=== PATIENT | female | born 1960 | race Caucasian/White ===

== ENCOUNTER 2024-06-29 12:06 | Emergency (ER) | payer OTHER, SELFPAY ==
--- OUTSIDE RECORDS SUMMARY | 2024-01-20 11:55 | XMS_ITS ---
Author Organization [facility] Address [address] [place] [address] Care Team Providers Care Imager Name Role Phone Shae Gonzales Primary Care Provider Caitlin Barnett [phone] REASON FOR VISIT [facility] Encounters Encounter Location Date Provider Diagnosis [address] [id number] 01/20/2024 Caitlin Siddiqui Plan Of Treatment No Information Progress Notes * HIEN CUMMINGSOB:1960 (63 yo F)Acc No.[id number]:01/20/2024 Patient: JESSI HOOD Provider: Balwinder Siddiqui MD :1960 A ge:63 Y S ex:Female Date:01/20/2024 Address:[address] [id number] Pcp:Shae Gonzales Subjective: * Chief Complaints: * 1 . [facility]. * Medical History: Objective: * Vitals: Assessment: Plan: * Treatment: * Images: Billing Information: * Visit Code: * Procedure Codes: * Electronic signature of Fariha Siddiqui MD on 06/29/2024 at 12:09 PM CDT Sign off status: Pending * Provider: Balwinder Siddiqui MD Date: 1 03/22/2023 Generated for Printi ng/Faxing/eTransmitting on: 0 06/29/2024 12:09 PM CDT
[2024-06-29] VITALS (21 sets, daily range): BP systolic 97–135; BP diastolic 59–84; PULSE 84–94; RESP 11–97; TEMP 37.2; O2SAT 93–100; BMI 27.1
--- OUTSIDE RECORDS SUMMARY | 2024-06-29 12:08 | XMS_ITS ---
Author Name Interface, [id number] Address [address] [facility] [address] [address] Organization [facility] Address [address] [facility] [address] [address] Care Team Providers Care Prep Person Name Role Phone LoboRachael Unavailable Unavailable Allergies and Adverse Reactions Medication/Group Name Reaction Severity Date Restasis 01/26/2024 Vesicare 01/26/2024 hydroxychloroquine Penicillins 01/26/2024 amoxicillin 01/26/2024 cephalexin 01/26/2024 methotrexate 01/26/2024 minocycline 01/26/2024 Plan Date Type Value 01/26/2024 APPOINTMENT OV 20 MIN 06/17/2023 APPOINTMENT OV 30 MIN 06/17/2023 EDNA Mammogram, 3D wi th tomosynthesis Reason for Visit OV 20 MIN Encounters Date Name 06/17/2023 Breast cancer, femal e 06/17/2023 Breast pain 06/17/2023 Estrogen receptor po sitive status [ER+] 06/17/2023 History of malignant neoplasm of breast (situation) 06/17/2023 Hot flashes 06/17/2023 Lymphedema 06/17/2023 Screening mammograph y (procedure) 06/17/2023 Vaginal dryness (dis order) Immunizations Date Name Route Dose Instructions Refusal Reason Stat us Flu vaccine - Adult Comp leted Medications Date Name Route Dose Frequency Instructions Start Date End Date Status Cholecalciferol Oral active Ibuprofen Oral ac tive Gabapentin Oral po 2.0 daily a ctive Triamcinolone Topical Cream 0.1 % active Fluconazole Oral Tablet active Betamethasone Dipropionate Topical Cream 0.05 % active Multivitamins Oral Tablet active Tacrolimus Topical Ointment 0.1 % activ e 024 diclofenac sodium 0.01 MG/MG Topical Gel 06/17/19 24 active 024 anastrozole 1 MG Oral Tablet orally 1.0 tablet every day 05/08/19 24 active 023 diclofenac sodium 0.01 MG/MG Topical Gel 02/26/19 23 active 023 anastrozole 1 MG Oral Tablet orally 1.0 tablet every day 02/26/19 23 active 022 anastrozole 1 MG Oral Tablet orally 1.0 tablet every day 07/04/19 22 active Problems Diagnosis Status Date of Diagnosi s Screening mammography (procedure) Active History of malignant neoplasm of breast (situati on) Active Breast cancer, female Active 12/29/2020 Hot flashes Active Estrogen receptor positive status [ER+] Active Breast pain Active Vaginal dryness (disorder) Active Lymphedema Active Vital Signs Date Type Value 06/17/2023 BMI 28.10 06/17/2023 Height 72.00 06/17/2023 Weight 207.20 06/17/2023 Pain Scale 5.00 06/17/2023 BSA 2.16 06/17/2023 Oxygen Saturation 96.00 06/17/2023 Respiratory Rate 16.00 06/17/2023 Heart Beat 86.00 06/17/2023 Body Temperature 99.00 06/17/2023 Intravascular Systolic 146 06/17/2023 Intravascular Diastolic 90 01/26/2024 BSA 2.14 01/26/2024 BMI 27.40 01/26/2024 Height 72.00 01/26/2024 Weight 202.00 01/26/2024 Pain Scale 4.00 01/26/2024 Intravascular Systolic 122 01/26/2024 Intravascular Diastolic 72 01/26/2024 Oxygen Saturation 99.00 01/26/2024 Respiratory Rate 16.00 01/26/2024 Body Temperature 97.40 01/26/2024 Heart Beat 87.00 Notes Section * Med Onc Follow-up Note Patient Name: JESSI CUMMINGS Date Of : 1960 Today's Provider:?Rachael Diamond RN, MORTGAGE ORIGINATOR, MA, AOCN Date of Service:?06/17/2023 Attending Physician:?Isadora Richards (Hematology/Oncology) Referring Provider: ? HEMATOLOGY/ MEDICAL ONCOLOGY FOLLOW UP VISIT Reason for Visit Ongoing clinical surveillance?? Identifying data: Patient is a 61-year-old female with a history of stage I??left breast cancer, currently on anastrozole Assessment 1.?? Stage I??left-sided breast cancer, ???ER/MI strongly positive, grade 1,??pT1c, N0 M0, H ER 2 negative ???Postmenopausal ?Previously seen at [facility], transferring care for insurance reasons ???Oncotype score 0 ??? Treatment:??(02/27/2021)??left breast lumpectomy followed by radiation therapy ?(05/2021???present) Anastrozole 1 mg p.o. daily, tolerating well 2.?? Hot flashes???stable ??? Is not interested in venlafaxine ??? Per previous note,??patient stopped??black nikos due to controversial data with ER positive breast cancer 3.?? Sjogren's disease ??? Patient??has dry mouth??using artificial saliva 5.?Bone density ???Normal bone density at start of endocrine therapy ???(06/09/2023) DEXA: Normal bone density, improved from previous??DEXA 6.?? Depression ???Managed with??escitalopram 7. ??Vaginal dryness ??? Previously given samples of HyloGyn 8.?? Left breast lymphedema ?Previous imaging has been done and negative, continues to have tightness. Plan 1.?Continue anastrozole??daily 2.?? Follow-up with Dr. Richards in 6 months 3.?? Annual mammogram in January, prior to follow-up with Dr. Richards 4.?? Patient is not interested in restarting physical therapy for lymphedema and??left breast pain associated with scar tissue??however I recommended??massage and a compression bra??(patient tried a compression bra but??it applied too much pressure and axilla causing more pain) 5. ??She may try Voltaren for breast pain. 6. ??Hylo SHIRRING MACHINE OPERATOR??suppositories with hyaluronic acid for vaginal dryness;??samples provided and reviewed??directions Advanced Care Planning Not discussed at this visit. Pain Scale on Today's Visit 5 Pain Plan on Today's Visit Date of Service: 06/17/2023 Pain Scale (0-10): 5 Pain Treatment Plan: Reassessment of pain at an appropriate time interval Comment: Chronic breast pain, stopped PT and has not been using Voltaren Smoking Status Smoking Tobacco : Never smoker; Smokeless Tobacco : none found; Vaping : none found Depression Screening Tool Status Was not screened Reason: Patient Refused; Screening Date: 06/17/2023 History of Present Illness 60-year-old postmenopausal female, some family history of breast cancer, brief use of hormone replacement therapy was abnormality was detected on routine mammography 1. ??12/15/2020: Patient had diagnostic mammogram done??which showed left breast 2 o'clock position 10 cm nipple and area of??mammographic abnormality??which is noted on ultrasound to be 1.3 cm 2.?? 12/19/2020:??Left breast ultrasound-guided biopsy??performed of left breast, 2:00 10 cm from nipple ?Invasive ductal cancer ??? Milano grade??1 of 3 ??? Angiolymphatic invasion absent ??? ER +99% ??? MI positive??and 9% ??? HER2??equivocal 2+ ??? Negative on FISH 3.?? 02/27/2021: Lumpectomy performed ??? Invasive ductal cancer ??? Grade 1 of 3 ??? 1.3 cm ?Margins negative, closest for DCIS 0.3 cm ?4 lymph nodes all negative 4.?? 03/14/2021: Oncotype score 0, distant recurrence at 9 years 3% average chemotherapy benefit lessthan 1% 5.?? 05/01/2021 to 05/30/2021: Patient received 4-5 600 followed by boost to tumor bed of 1000 cGy for total dose of 5256 CGY 6.?Early May 2021: Started??anastrozole Reproductive history:??Menarche at age 14, age of first live 27,??number pregnancies 4, number of live births 4,??refuses hormone replacement therapy??she thinks for about 4 years.?? Menopause was??in 2018 HEALTH MAINTENANCE: 1. ??(06/09/2023) DEXA:??Normal bone density 2.?? (01/16/2023) mammogram:??No abnormal findings 3.?? (01/2023)??Pap and pelvic: Normal 4.?? (03/2023) colonoscopy:??Per patient, no abnormal findings, report has been requested Interval History Latia continues to have??edema??to her left breast, lower portion and pain??to the upper outer quadrant extending to the axilla.?? Initially she was [facility] at [facility]??but then moved [facility] as it was more convenient.?? She wrapped her breast and chest wall for a while but then stopped??she did not want to continue.?? She was fitted for a support bra??but did not purchase a bra as it was causing too much??pressure??to the left axilla causing pain.?? She felt the pain and swelling would worsen if she wore it.?No changes to the breast or enlarged lymph nodes. She continues to have intermittent hot flashes, stable. ??She also has generalized body aches whichstarted with anastrozole, stable.?? No cardiac or respiratory complaints. ??Appetite is good and remained stable.?Bowels are regular, no melena or hematochezia. ??She had a colonoscopy in March, believes the results were normal??but unsure of pathology report or when she is due for a follow-up??colonoscopy.?? No??vaginal bleeding or discharge. ??Pap smear in January was normal.?? She has ongoing vaginal dryness??and used Hylo SHIRRING MACHINE OPERATOR for a few doses but unsure if it was helpful. Review of Systems Remaining 14 point comprehensive review of systems within normal limits. NCCN Distress Thermometer and Problem List were collected and documented in the patient chart.?? Remarkable symptoms and concerns were discussed with the patient.?? Any additional follow-up is indicated in the plan. Past Medical and Surgical History Lumbar discectomy, vein stripping surgery.?? Previous diagnosis of this??depression documented in chart, Sjogren's disease, vocal cord nodule Current Medications Medication List Name Date Escitalopram Oral 07/03/2021 Gabapentin Oral 07/03/2021 Tacrolimus Topical Ointment 0.1 % 2021 Ibuprofen Oral 07/03/2021 Multivitamins Oral Tablet 07/03/2021 Anastrozole Oral 05/08/2023 Cholecalciferol Oral 07/03/2021 Fluconazole Oral Tablet 07/03/2021 Triamcinolone Topical Cream 0.1 % 2021 Diclofenac Topical Gel 1 % 06/17/2023 Betamethasone Dipropionate Topical Cream 0.05 % 07/03/2021 Allergies Penicillins, Restasis, Vesicare, amoxicillin, cephalexin, hydroxychloroquine, methotrexate and minocycline Family History Mother with breast cancer in her 50s, paternal grandmother with breast cancer Complete genetic testing negative Social History ,??lives in [place] with her , Jeanmarie. Habits:?does not smoke or drink alcohol No update Vital Signs Blood pressure: 146/90, Pulse: 86, Temperature: 99 F, Respirations: 16, O2 sat: 96%, Pain Scale: 5,Height: 72 in, Weight: 207.2 lb, BSA: 2.16, BMI: 28.1 kg/m2 Covid-19 vaccine (School Yourself) (07/03/2021), Patient declined/rejected; Flu vaccine - Adult (12/31/2021), Elsewhere; Flu vaccine - Adult (07/03/2021), Elsewhere Performance Status ECOG or Karnofsky ECOG: Not recorded Karnofsky: 100% Normal, no complaints, no evidence of disease. (Date: 06/17/2023) Physical Exam GENERAL: Healthy appearing female no acute distress. JAMES: Pupils equal, round, reactive to light. ??Conjunctive are clear. ??Extraocular movement intact. ?? LYMPH: No cervical, supraclavicular or axillary lymphadenopathy CV: Regular rate and rhythm. ??No murmurs or gallops noted. ??No peripheral edema. RESP: Patient does not appear short of breath with conversation. ??Lungs are clear to auscultation BREAST: Right breast exam benign. ??Left breast status post lumpectomy and axillary lymph node dissection. ??Generalized lymphedema to the lower half of the left breast. ??Pain noted with assessment at the tail of the breast into the left axilla, extensive scar tissue noted but?? no mass or skin changes.?? Genetics/Molecular/Biomarkers * Breast cancer, female ( Stage Date: Unknown, Stage IA (T1c, pN0, M0, G1, ER Status: Positive, MI Status: Positive, HER-2/tom Status: Negative) Date of Dx:12/29/2020 ) Additional Labs, Imaging, and Other Studies Lab Results ? Surveys/Consents/Other Discussions The patient verbalized understanding of plan of care. Patient will be seen as above, sooner if needed. ??35 minutes ??? 30 minutes history and physical,??symptom management,??discussing follow-up plan, update healthmaintenance ??? 5 minutes orders and documentation Rachael Diamond RN, MAILE, KATHY, HARRIS CC: FAX Chelsey Rodriguez MD Electronically signed by Rachael Diamond RN, MAILE, KATHY, HARRIS 06/17/2023 15:32 CDT
--- OUTSIDE RECORDS SUMMARY | 2024-06-29 12:08 | XMS_ITS | Data Portability ---
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 Plan of Treatment Reminders Order Date Submit Date Provider Last Modified By Organization Details Last Modified Time Details Appointments URODYNA MICS FU 20 2024 11:30A M Tapan Vaughn MD Not available Not available Not available Lab urinaly sis, dipstic k 2024 025 [email or web address] [facility], [address], [place], [address], 06/09/2024 12:16:10 Referral None recorde d. Procedures urodyna blanka testing , complex (PROC) 2024 025 [email or web address] Not available 06/09/2024 14:19:05 Surgeries None recorde d. Imaging None recorde d. Medication Orders None recorde d. Patient TargetsNo targets recorded. Patient InstructionsNo instructions recorded. Reason for Referral None Reported. Results Created Date Observation Date Name Description Value Unit Range Abnormal Flag Note LastModifiedBy Organization Detail LastModifiedTime 06/10/1906/09/2024 urina lysis , dipst ick BLOOD Trace (5 RBC/uL ) Not Available [facility] [address], [place], [address], 06/09/2024 12:05:59 06/10/1906/09/2024 urina lysis , dipst ick BILIRUBIN Negati ve Not Available [facility] [address], [place], [address], 06/09/2024 12:05:59 06/10/19 25 06/09/2024 urina lysis , dipst ick UROBILINOGEN 0.2 mg/dL (Norm) Not Available [facility] [address], [place], [address], 06/09/2024 12:05:59 06/10/19 25 06/09/2024 urina lysis , dipst ick KETONES Negati ve Not Available [facility] [address], [place], [address], 06/09/2024 12:05:59 06/10/19 25 06/09/2024 urina lysis , dipst ick PROTEIN Negati ve Not Available [facility] [address], [place], [address], 06/09/2024 12:05:59 06/10/19 25 06/09/2024 urina lysis , dipst ick NITRITES Negati ve Not Available [facility] [address], [place], [address], 06/09/2024 12:05:59 06/10/19 25 06/09/2024 urina lysis , dipst ick GLUCOSE Negati ve Not Available [facility] [address], [place], [address], 06/09/2024 12:05:59 06/10/19 25 06/09/2024 urina lysis , dipst ick p.H. 6.5 Not Available [facility] [address], [place], [address], 06/09/2024 12:05:59 06/10/19 25 06/09/2024 urina lysis , dipst ick S.G. (Specific [place]) 1.010 Not Available [facility] [address], [place], [address], 06/09/2024 12:05:59 06/10/19 25 06/09/2024 urina lysis , dipst ick LEUKOCYTES Negati ve Not Available [facility] [address], [place], [address], 06/09/2024 12:05:59 Result Notes None recorded. Problems Name Problem SNOMED Code Status Onset Date Resolution Date Notes Provider Name and Address Organization Details Recorded Time Overactive urinary bladder 300354660 Active 025 Treva todd [facility] 16:18:04 Problem Notes None recorded. Procedures Surgical History Date Name Laterality Status Provider Name and Address Organization Details Recorded Time 025 Urodynamic Studies completed Treva Julio [facility] 06/28/2024 16:16:58 025 CystoscopyFemale completed Tapan Vaughn MD [address] [facility] [address], [place], [address] 06/09/2024 13:12:00 025 Bladder Scan completed Lamont Watkins [facility] 06/09/2024 12:05:54 Imaging Results None recorded. Procedure Notes None recorded. Medical Equipment None Reported. Allergies Allergen ID Allergen Name Allergen Category Reaction Reaction Severity Criticality Documentation Date Start Date Code Code System Note Provider Name and Address Organization Details Recorded Time 914557 Product containin g penicilli n (product) medicatio n Not available Not available Not available 06/09/2024 51249 8001 SNOMED Lamont todd [facility] 12:03:12 Medications Name Sig Start Date Stop Date Status Note LastModified by Organization Details LastModified Time anastrozole 1 mg tablet TAKE 1 TABLET BY MOUTH ONCE DAILY active Not Available Not Available No t Available clonidine HCl 0.1 mg tablet TAKE 1/2 (ONE-HALF ) TABLET BY MOUTH TWICE DAILY 06/09 completed Not Available Not Available Not Available oxybutynin chloride ER 10 mg tablet,exte nded release 24 hr TAKE 1 TABLET BY MOUTH ONCE DAILY 06/09 completed Not Available Not Available Not Available azithromyci n 250 mg tablet TAKE 2 TABLETS BY MOUTH ON DAY 1, AND THEN TAKE 1 TABLET BY MOUTH ONCE A DAY ON DAY 2 THROUGH DAY 5 06/09 completed Not Available Not Available Not Available benzonatate 200 mg capsule TAKE 1 CAPSULE BY MOUTH THREE TIMES DAILY NEEDED FOR COUGH 06/09 completed Not Available Not Available Not Available prednisone 20 mg tablet TAKE 2 TABLETS BY MOUTH ONCE DAILY WITH A MEAL FOR 5 DAYS 06/09 completed Not Available Not Available Not Available gabapentin 400 mg capsule TAKE 4 CAPSULES BY MOUTH ONCE DAILY AT BEDTIME active Not Available Not Available No t Available fluorometho lone 0.1 % eye drops,suspe nsion INSTILL 1 DROP INTO EACH EYE TWICE DAILY 06/09 completed Not Available Not Available Not Available metronidazo le 0.75 % topical cream APPLY CREAM TOPICALLY TWICE DAILY TO FACE 06/09 completed Not Available Not Available Not Available hydroxychlo roquine 200 mg tablet TAKE 1 TABLET BY MOUTH TWICE DAILY WITH MEALS 06/09 completed Not Available Not Available Not Available methylpredn isolone 4 mg tablets in a dose pack TAKE DIRECTED 06/09 completed Not Available Not Available Not Available cefdinir 300 mg capsule TAKE 1 CAPSULE BY MOUTH TWICE DAILY UNTIL GONE 06/09 completed Not Available Not Available Not Available spironolact one 50 mg tablet TAKE 1 TABLET BY MOUTH ONCE DAILY active Not Available Not Available No t Available escitalopra m 10 mg tablet TAKE 1 TABLET BY MOUTH IN THE MORNING active Not Available Not Available No t Available bupropion HCl XL 150 mg 24 hr tablet, extended release TAKE 1 TABLET BY MOUTH ONCE DAILY IN THE MORNING active Not Available Not Available No t Available chlorhexidi ne gluconate 0.12 % mouthwash RINSE WITH 15ML (1 CAPFUL) FOR 30 SECONDS IN THE MORNING AND EVENING AFTER TOOTHBRUS DAGO. EXPECTORA TE AFTER RINSING. DO NOT SWALLOW. 06/09 completed Not Available Not Available Not Available Xiidra 5 % eye drops in a dropperette INSTILL 1 DROP INTO EACH EYE EVERY 12 HOURS 06/09 completed Not Available Not Available Not Available Vitals Date Recorded Body height Body mass index (BMI) Body weight Provider Name and Address Organization Details Last Updated DateTime 06/09/2024 182.88 cm 27.1 kg/m2 19269.47 g Lamont Watkins [facility] 06/09/2024 12:01:59 Social History Question Answer Notes LastModified by [employer] Details LastModified Time Tobacco Smoking Status Never Smoker Lamont Watkins [facility] 06/09/2024 12:05:15 What Is Your Level Of Caffeine Consumption? Occasional Information not available 06/09/2024 What Was The Date Of Your Most Recent Tobacco Screening? 06/09/2024 Information not available 06/09/2024 Have You Ever Been Counseled For Unhealthy Alcohol Use? No Information not available 06/09/2024 Has Tobacco Cessation Counseling Been Provided? No Information not available 06/09/2024 Sex: Female Functional Status Question Answer Note LastModified by [employer] Details LastModified Time Do you use any illicit or recreational drugs? No Information not available 06/09/2024 Do you or have you ever used any other forms of tobacco or nicotine? No Information not available 06/09/2024 What is your level of alcohol consumption? Occasional Information not available 06/09/2024 Mental Status None recorded. Family History Nothing Reported. Medical History Condition Response Other N High Blood Pressure N Kidney Stones N Lung Disease N Depression N GERD/Acid Reflux N Sexually Transmitted Infection N Cancer Y High Cholesterol N Diabetes N Bleeding Disorder N Heart Disease N Gynecological HistoryNo gynecological history recorded. Obstetrics History GPAL:G 0 P 0 0 0 0 Immunizations Vaccine Type Date Status Note Provider Nam e and Address Organization Details Recorded Time Td (adult), 2 Lf tetanus toxoid, preservative free, adsorbed 8 completed Not Available [facility] 06/28/2024 15:13:38 Influenza, split virus, trivalent, preservative 2 completed Not Available [facility] 06/28/2024 15:13:38 Tdap 8 completed Not Available [facility] 06/28/2024 15:13:38 Influenza, split virus, trivalent, preservative 8 completed Not Available [facility] 06/28/2024 15:13:38 Influenza, split virus, trivalent, PF 1 completed Not Available [facility] 06/28/2024 15:13:38 Influenza, split virus, trivalent, preservative 2 completed Not Available [facility] 06/28/2024 15:13:38 Tdap 2 completed Not Available [facility] 06/28/2024 15:13:38 Influenza, split virus, trivalent, preservative 4 completed Not Available [facility] 06/28/2024 15:13:38 Influenza, split virus, quadrivalent, PF 5 completed Not Available [facility] 06/28/2024 15:13:38 Influenza, split virus, quadrivalent, PF 6 completed Not Available [facility] 06/28/2024 15:13:38 Influenza, split virus, quadrivalent, PF 7 completed Not Available [facility] 06/28/2024 15:13:38 Influenza, split virus, quadrivalent, PF 8 completed Not Available [facility] 06/28/2024 15:13:38 Influenza, split virus, quadrivalent, PF 9 completed Not Available [facility] 06/28/2024 15:13:38 Influenza, split virus, quadrivalent, PF 0 completed Not Available [facility] 06/28/2024 15:13:38 zoster recombinant 1 completed Not Available [facility] 06/28/2024 15:13:38 Influenza, recombinant, quadrivalent, PF 1 completed Not Available [facility] 06/28/2024 15:13:38 zoster recombinant 2 completed Not Available [facility] 06/28/2024 15:13:38 Influenza, split virus, quadrivalent, PF 2 completed Not Available [facility] 06/28/2024 15:13:38 Tdap 3 completed Not Available [facility] 06/28/2024 15:13:38 Influenza, split virus, quadrivalent, PF 3 completed Not Available [facility] 06/28/2024 15:13:38 Influenza, split virus, trivalent, PF 4 completed Not Available [facility] 06/28/2024 15:13:38 Past Encounters Encounter ID Performer Location Encounter Start Date Encounter Closed Date Diagnosis/Indication Diagnosis SNOMED-CT Code Diagnosis ICD10 Code Diagnosis Note [id number] MD NARA [facility] [address] [place] [address] 06/09/2024 11:35:05 06/10/2024 12:33:30 Overactive urinary bladder 119085390 N32.81 dysfunctio nal voidingcon tinue CIC bid Will need UDS and fu wit hme after [id number] MD NARA [facility] [address] [place], [place] [address] 06/28/2024 15:09:15 06/29/2024 11:28:05 Overactive urinary bladder 656138484 N32.81 dysfunctio nal voidingcon tinue CIC bid Will need UDS and fu wit hme after Health Concerns Section Related Observation LastModified by Organization Detai ls LastModified Time None Recorded Concern Status LastModified by Organization Details LastModified Time None Recorded Advance Directives Directive None Recorded Payers Insurance Date Sequence Insurance Name Policy Number Policy Wyatt Covered Member ID Wyatt Member ID Guarantor Name 06/25/2024 1 [employer] [id number] Sonja Mobley [id number] Sonja Mobley Notes Date Note Type Note Provider Name and Address Organization Details Recorded Time 06/09/2024 text/html 63 YO F presents with main concern of Nocturia times 2 and urgency both day time night time with urge incontinence. 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 Most recently she has bee treated with DR. Shepard. She tried ditropan that cause some dry mouth/constipation . She has to [facility]IC bid to improve her urge incontinence. PMHx: Breast cancer (on anastrazole), sjogrens, lymphedema PSHx: bladder sling 2001, breast lumpectomy UA=trace blood Cysto is normal with some thick mid-urethral vaginal fold/bend; uretra is wide open, neg stress test. Tapan Vaughn MD [address] [facility], [place], [address], [facility] 06/09/2024 13:12:37 06/28/2024 text/html Date of Service: 06/28/24 Indication: OAB Referring Physician: Dr. Vaughn Testing today included: Uroflow, multichannel cystometry, EMG, urethral pressure profile, and pressure flow study. Details of procedure: After discussing the purpose and nature of visit, the patient consented to proceed. Patient was straight catheterized prior to starting study; 125 mL of urine drained from bladder. UA dipstick negative for UTI. Uroflow: Patient voided 97 mL. Maximum flow rate 13.9 ml/s. Average flow rate 4.5 ml/s. Filling phase: 7 fr air charged catheters were used. Fill rate: 35 mL/minute The first sensation of bladder filling occurred at 59 mL. The first desire to void occurred at 121 mL. The strong desire to void occurred at 144 mL The maximum capacity is 187 mL. The bladder compliance is normal. Detrusor pressure during filling is normal. Detrusor Overactivity: Patient did not demonstrate any DOs. UPP: Maximum urethral closing pressures performed with 123 mL instilled. MUCP was 26 cmH2O Stress Urinary Incontinence: A Cough Leak Point Pressure Study was performed at 74ml with no leak detected and a Peak Pressure of 77bgQ7O.A Cough Leak Point Pressure Study was performed at 123ml with no leak detected and a Peak Pressure of 24tcN6U.A Cough Leak Point Pressure Study was performed at 146ml with no leak detected and a Peak Pressure of 81xrU7I.A Valsalva Leak Point Pressure Study was performed at 123ml with no leak detected and a Peak Pressure of 76lxP6K.A Valsalva Leak Point Pressure Study was performed at 146ml with no leak detected and a Peak Pressure of 806tqE6V. Pressure flow study: Patient voided 361 mL after permission to void was given. Maximum flow rate 7.2 mL/s with PDet at max flow 10 cm H2O. Post void residual 0. Visual detrusor contraction was noted. Abdominal straining was noted. EMG: The sphincteric EMG shows an increase in activity with increased abdominal pressure. The EMG activity shows relaxation with permission to void. Tika Notes: - No leaking noted during filling phase. Pessary in place during Testing? no Patient was given Bactrim DS x1 for UTI prevention Tika name: PARTHA Freitas [place], [place] - [facility] 06/28/2024 16:31:28 OBGyn Episode No OBEpisode recorded.
--- OUTSIDE RECORDS SUMMARY | 2024-06-29 12:09 | XMS_ITS | Encounter Summary ---
Author Organization [place] Address [address] 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 Operator Name Role Phone Clinic, [facility] Primary Care Provider + Chelsey Rodriguez MD Unavailable [phone] Reason for Visit * Reason Onset Date Comments Prior Authorization 05/05/2017 Botox Encounter Details Date Type Department Care Team (Late st Contact Info) Description 05/05/2017 Telephone [facility] [place] [address] [place] [phone] Raz Buckner MD [address] [id number] Prior Authorization (Botox) Social History Tobacco Use Types Packs/Day Years Used Date Smoking Tobacco: Never Smokeless Tobacco: Never Alcohol Use Standard Drinks/Week Comments Yes 0 (1 standard drink = 0.6 oz pur e alcohol) SOCIAL Adolescent Education Answer Date Record ed Getting School Help Needed Not on file 11/17 Comments No Sex and Gender Information Value Date Recorded Sex Assigned at Not on file 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 Buckner is dictating a letter to go along will get sent off tomorrow. JOSUE Quiroga * Telephone Encounter - Radhika Guaman - 05/16/2017 11:53 AM CDT Patient calling stating she received statement from preffered one -- can we contact patient and lether know the status. * Telephone Encounter - Lori Ortiz APRN CNP - 05/08/2017 2:[address] Buckner is working on letter and sending all the records for the PA of Botox. JOSUE Quiroga * Telephone Encounter - Loraine Velasco RN - 05/05/2017 11:23 AM CDT Michelle, calling with [employer] ([phone]) indicating the pt had Botox done on January 28, 2017 there was no Prior Authorization done beforehand and is now needing to be done retro-actively. They are needing clinical documentation and notes from office visits, how her ADL's are affected and tried and fails. The information can be faxed to Utilization PARTHA Luis at [phone]. The pt's case number is [id number]. Routing to JAMIA Payton. documented in this encounter Plan of Treatment Not on file documented as of this encounter Visit Diagnoses Not on filedocumented in this encounter Care Teams Grease Refiner Operator Relationship Specialty Start Date End Date [facility], [facility] [address] [place] [address] PCP - General 11/15/10 Chelsey Rodriguez MD [facility] [address] [place] [address] 11/15/10 documented as of this encounter
--- OUTSIDE RECORDS SUMMARY | 2024-06-29 12:09 | XMS_ITS | Clinical Summary ---
Author Organization [facility] Address [address] [place] [address] Care Team Providers Care [place] Actor Name Role Phone Chelsey Rodriguez MD Primary Care Provider + Benjy Silva MD Unavailable [phone] Allergies Active Allergy Reactions Criticality Noted Date Comments Amoxicillin Hives 11/15/2015 Leflunomide Rash 04/08/2013 Cephalexin Nausea Only 01/08/2012 Hydroxychloroquine Shortness Of Breath,Rash Plaquenil Methotrexate Rash,Alopecia 04/08/2013 Minocycline Nausea Only 01/16/2011 Minocin Penicillins Rash Medium 05/04/2015 Cyclosporine *Unknown - Pt Doesn't Remember Solifenacin Other - Describe In Comment Field 01/24/2016 Dry mouth Medications multivitamin (MVI) tablet Take 1 tablet by mouth once daily. 0 07/04/19 10 Active cholecalciferol (VITAMIN D3) 2,000 unit capsule Take 1 capsule by mouth once daily. 0 04/08/19 14 Active anastrozole (ARIMIDEX) 1 mg tabletIndications:Malig nant neoplasm of breast in female, estrogen receptor positive, unspecified laterality, unspecified site of breast (HC) Take 1 Tablet (1 mg) by mouth once daily. 30 Tablet 1 04/03/19 22 Active triamcinolone (ARISTOCORT; KENALOG) 0.1 % creamIndications:Rash Apply topically to affected area(s) three times daily. 80 g 3 12/27/19 22 Active nystatin (MYCOSTATIN) 100,000 unit/mL suspensionIndications:M outh pain SWISH AND SPIT 5 ML BY MOUTH 4 TIMES DAILY NEEDED FOR MOUTH SORES. 473 mL 10/31/19 23 Active lidocaine, viscous, 2 % liquidIndications:Mouth pain SWISH AND SPIT 5 ML BY MOUTH EVERY 4 HOURS IF NEEDED (MOUTH SORES) 100 mL 10/31/19 23 Active gabapentin (NEURONTIN) 400 mg capsuleIndications:Infl ammatory neuropathy (HC) Take 4 Capsules (1,600 mg) by mouth at bedtime. 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 60 Each 11 02/10/20 24 Active buPROPion 150 mg Extended-Release tabletIndications:Major depressive disorder, single episode in full remission Take 1 Tablet (150 mg) by mouth once daily in the morning. 90 Tablet 3 05/01/19 25 Active spironolactone 50 mg tabletIndications:Alope toy Take 1 Tablet (50 mg) by mouth once daily. 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 Bilateral LE. More sensory than motor. Concern for axonal issue. Sees Dr. Mcgarry [facility] health care 01/14/2013 Overview (01/14/2013): Colonoscopy 01/2013 showed 1 hyperplastic polyp. Repeat in 2022. Morphea 02/03/2012 Overview (02/03/2012): Right lower leg Sjogren's disease 01/16/2011 Overview (04/02/2018): Sees Dr. Osorio Environmental allergies 10/21/2010 Neuropathy of leg 10/21/2010 Overview (04/04/2018): Etiology lumbar pinched nerve and peripheral neuropathy. With neurology EMGs showed damaged peripheral nerves also. Has left leg weakness and pain Lumbar radiculopathy, chronic 10/21/2010 Major depressive disorder, single episode in ful l remission 10/18/2010 Resolved Problems Problem Noted Date Diagnosed Date Resolved Date Protein-calorie malnutrition 04/03/2021 12/26/2021 Inflammatory neuropathy 02/08/2021 03/2 S/P LASIK (laser assisted in situ keratomileusis) 12/06/2020 12/26/2021 Ingrown nail 02/26/2018 12/26/2021 Presbyopia 04/30/2016 01/20/2023 Incontinence 01/24/2016 12/26/2021 Encounters Date Type Department Care Team Description 06/22/2024 Orders Only [facility] [address] [facility] [address] [place] [address] Benjy Silva MD <No scans attached> 06/09/2024 Orders Only [facility] Scanner 1 scan: (1-Ord) [facility], CYSTOSCOPY, 06/09/2024 06/04/2024 Telephone [facility] [address] [place] [address] Jaye Figueroa PA Questions 05/24/2024 1:00 PM CDT Office Visit [facility] [address] [place] [address] Zena Cardozo, ABBEY Anxiety; Depression 05/24/2024 Travel 04/29/2024 11:00 AM CDT Office Visit [facility] [address] [place] [address] Chelsey Rodriguez MD Medication Management; hair loss; Derm Problem (Spot on left shoulder) 04/29/2024 Travel 04/28/2024 Orders Only [facility] Scanner 1 scan: (1-Ord) TC ORTHO, RT KNEE INJ, 04/28/2024 from Last 3 Months Immunizations Immunization Administration Dates Next Due AMB Influenza, IIV4 PF (=>6 mos Flulaval,Fluzone Fluarix)(Flu Clinic Only) 02/07/2020 INFLUENZA, IIV3 PF (AGE >= 6 MO) 12/23/2023 Influenza RIV4 (Age 18+ Year s) PRESERV FREE 01/26/2021 Influenza, IIV3 (Age >=3 years) 01/12/2014,11/25,10/18/2010 Influenza, IIV4 01/20/2023,,01/19/2019,2017,12/23/2016,12/20/2015,12/14/2014 Td (Age >=7 Years) 05/14/2007,10/25/1997 Tdap 03/18/2022,01/31/2012,05/14/2007 Zoster (Shingrix-RZV, recombinant) 04/11/2021, Family History Medical History Relation Name Comments Good Health Brother Good Health Daughter Hyperlipidemia Father Hypotension Father ?? Heart Disease Maternal Grandfather Heart Disease Maternal Grandmother Cancer-breast Mother Diabetes Mother Heart Disease Paternal Grandfather Cancer-breast Paternal Grandmother Heart Disease Paternal Grandmother Heart attack Paternal Uncle Hyperlipidemia Sister Good Health Son 1 Good Health Son 2 Good Health Son 3 Cancer-colon No Family History Cancer-ovarian No Family History Cancer-prostate No Family History Relation Name Status Comments Brother Alive Daughter Alive Father Alive Maternal Grandfather Maternal Grandmother Mother Alive Paternal Grandfather Paternal Grandmother Paternal Uncle Sister Alive Son 1 Alive Son 2 Alive Son 3 Alive Social History Tobacco Use Types Packs/Day Years Used Date Smoking Tobacco: Never Smokeless Tobacco: Never Tobacco Cessation:Counseling Given: Not Answered Alcohol Use Standard Drinks/Week Comments Yes 0 (1 standard drink = 0.6 oz pur e alcohol) occ PHQ-2 Answer Date Recorded PHQ-2 TOTAL SCORE 0 04/29/2024 Social Connections Answer Date Recorded Do you often feel lonely or isolated from those around you? 0 06/02/2023 Financial Resource Strain Answer Date R ecorded Difficulty of Paying Living Expenses 3 06/02/2023 Difficulty of Paying Living Expenses Not on file 06/02/2023 Food Insecurity Answer Date Recorded Do you worry your food will run out before you are able to buy more? 1 06/02/2023 Transportation Needs Answer Date Record ed Does lack of transportation keep you from medica l appointments? 1 06/02/2023 Does lack of transportation keep you from work, meetings or getting things that you need? 1 06/02/2023 Housing Stability Answer Date Recorded What is your housing situation today? 1 06/02/2023 Utilities Answer Date Recorded Do you have trouble paying f or utilities (for example, heat, electricity, water, phone)? 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 Not on file Not on file Not on fi le Obstetrics History Para Term AB IAB SAB Ectopic Multiple Livin g Live Births 4 4 4 4 Date Outcome GA Total Labor Labor/2nd/3rd Weight Sex Type Anes PTL Kacie A1 A5 Name Clin Term M Term M Term M Term F Last Filed Vital Signs Vital Sign Reading Time Taken Comments Blood Pressure 120/76 04/29/2024 11:02 AM CDT Pulse 88 04/29/2024 11:02 AM CDT Temperature 37.7 C (99.8 F) 01/31/2024 1:24 PM ERGONOMIC SPECIALIST Respiratory Rate 15 02/25/2024 10:5 3 AM ERGONOMIC SPECIALIST Oxygen Saturation 96% 01/31/2024 1:2 4 PM ERGONOMIC SPECIALIST Inhaled Oxygen Concentration - - Weight 90.3 kg (199 lb 1.6 oz) 04/30/19 11:02 AM CDT with shoes Height 181.9 cm (5' 11.6) 02/25/2024 1 0:53 AM ERGONOMIC SPECIALIST Body Mass Index 27.31 02/25/2024 10:53 AM ERGONOMIC SPECIALIST Plan of Treatment Upcoming Encounters Date Type Department Care Team (Late st Contact Info) Description 07/07/2024 10:15 AM CDT Office Visit [facility] [address] [facility] [address] [place] [address] Yaneth Schilling MD [address] [place] [address] 07/20/2024 9:30 AM CDT Office Visit [facility] [address] [facility] [address] [place], [place] [id number] [place] [address] [place] [address] Health Maintenance Due Date Last Done Comments COVID-19 vaccine series (#1) 11/25/1967 HIV for age 15-65 1977 Hepatitis C screening for ag e 18-79 1980 Pneumococcal series for age 50+ (1 of 2 - PCV) 1981 RSV vaccine for adults or (1 - Risk 60-74 years 1-dose series) 2022 Mammogram for age 45-75 01/18/2025 01/19/20 24, 01/16/2023, 03/25/2022, Additional history exists BMI (ht and wt on same day) for age 18+ 02/24/2025 02/25/2024, 01/20/2024, 12/24/2023, Additional history exists Depression screening for age 12+ 04/29/2025 04/30/19 25 Lipids for age 45-75 01/21/2028 01/20/2023, 12/26/2021, 10/11/2019, Additional history exists Pap test for age 21-65 01/21/2028 , 01/20/2023, 10/11/2019, Additional history exists Tetanus booster 03/18/2032 03/18/2022, 01/11, 05/14/2007, Additional history exists Colonoscopy through age 75 01/14/2033 01/14/2023, Zoster (shingles) series for age 50+ Completed 04/11/2021, 01/26/2021 Tdap Completed 03/18/2022, 01/11, 05/14/2007 Influenza Vaccine Completed 12/23/2023, , 12/26/2021, Additional history exists Medical Devices Implanted Type Area Peanut Grader Device Identifier Shelf Expiration Date Model / Serial / Lot Iol [place] +19 Tecnis [id number] - [id number] Implanted:Qty : 1 on 03/21/2022 by Darwin Lockwood MD at [facility] [place] [facility] Implants Right: Eye [employer] 07/27/2026 [id number] / [id number] / NA Procedures Procedure Name Priority Date/Time Associated Diagnosis Comments SCAN-OPERATIVE/PRO CEDURE REPORT 06/09/2024 12:00 AM CDT SCAN-OPERATIVE/PRO CEDURE REPORT 04/28/2024 12:00 AM CDT XR MAMMO FELIX BILAT SCREEN Routine 01/19/2024 11:51 AM ERGONOMIC SPECIALIST Breast cancer in female (HC) Screening mammogram for breast cancer LIPID PANEL W REFLEX MEASURED LDL Routine 01/20/2023 1:25 PM ERGONOMIC SPECIALIST Hyperlipidemia, unspecified hyperlipidemia type HPV HIGH RISK Routine 01/20/2023 1:05 PM ERGONOMIC SPECIALIST Cervical cancer screening SCAN-COLONOSCOPY 01/14/2023 1:30 PM ERGONOMIC SPECIALIST from Last 3 Months or Most Recently Relevant to Health Maintenance Results * SCAN-OPERATIVE/PROCEDURE REPORT (06/09/2024 12:00 AM CDT) us Scanner OTHER Final Result * SCAN-OPERATIVE/PROCEDURE REPORT (04/28/2024 12:00 AM CDT) us Scanner OTHER Final Result * XR MAMMO FELIX BILAT SCREEN (01/19/2024 11:51 AM ERGONOMIC SPECIALIST) Anatomical Region Laterality Modality BREASTS, Breast Left, Breast Right Bilateral Mammography Impressions 01/19/2024 12:19 PM ERGONOMIC SPECIALIST There is no radiographic evidence for malignancy. Recommend annual mammograms. MAMMOGRAM ASSESSMENT: ACR 2 Benign PATIENTS: You will also receive a letter with your examination results in an easy to read format. If you have questions about your results, please contact your referring provider. Narrative 01/19/2024 12:19 PM ERGONOMIC SPECIALIST For Patients: As a result of the Century Cures Act, medical imaging exams and procedure reports are released immediately into your electronic medical record. You may view this report before your referring provider. If you have questions, please contact your health care provider. XR MAMMO FELIX BILAT SCREEN [[id number]] CLINICAL HISTORY: This is an asymptomatic 63 y.o. patient. INDICATION FOR EXAM: Mammogram Screening. TECHNIQUE: CC & MLO views were obtained. This study was evaluated with the assistance of Computer-Aided Detection. Breast Tomosynthesis was used in interpretation. COMPARISON FILMS: Yes 01/16/23 [employer] 03/25/22 [employer] FINDINGS: The breasts are heterogeneously dense, which may obscure small masses. No suspicious masses or microcalcifications. There are post treatment changes of left breast. Rachael Diamond ASSISTANT OFFICE MANAGER MAMMO Final Resu lt * (ABNORMAL) LIPID PANEL W REFLEX MEASURED LDL (01/20/2023 1:25 PM ERGONOMIC SPECIALIST) CHOLESTEROL,TOTAL 214(H) 100 - 199 mg/dL 01/20/2023 11:14 PM ERGONOMIC SPECIALIST [facility] [employer] [facility] Comment: Cholesterol, Total Reference Ranges Desirable <200 mg/dL Borderline 200-239 mg/dL High >=240 mg/dL TRIGLYCERIDES 221(H) <150 mg/dL 01/20/2023 11:14 PM ERGONOMIC SPECIALIST [facility] [employer] [facility] HDL CHOLESTEROL 41 >40 mg/dL 11:14 PM ERGONOMIC SPECIALIST [facility] [employer] NON-HDL CHOLESTEROL 173(H) <145 mg/dl 01/20/2023 11:14 PM ERGONOMIC SPECIALIST [facility] CHOL/HDL RATIO 5.22(H) <4.50 01/20/2023 11:14 PM ERGONOMIC SPECIALIST [facility] LDL CHOLESTEROL 129 <=130 mg/dL 01/20/2023 11:14 PM ERGONOMIC SPECIALIST [facility] VLDL CHOLESTEROL 44(H) <=30 mg/dL 01/20/2023 11:14 PM ERGONOMIC SPECIALIST [facility] PROVIDER ORDERED STATUS RANDOM 01/20/2023 11:14 PM ERGONOMIC SPECIALIST [facility] Blood BLOOD SPECIMEN / Unknown Venipuncture / Unknown 01/20/2023 1:25 PM ERGONOMIC SPECIALIST 01/20/2023 1:25 PM ERGONOMIC SPECIALIST Chelsey Rodriguez MD CHEMISTRY Final Re sult Performing Organization Address [facility] Co de Phone Number [facility] [address] [place] [id number], [place] * HPV HIGH RISK (01/20/2023 1:05 PM ERGONOMIC SPECIALIST) TYPE 16 Negative Negative 01/22/2023 4:04 PM ERGONOMIC SPECIALIST [facility] TYPE 18 Negative Negative 01/22/2023 4:04 PM ERGONOMIC SPECIALIST [facility] OTHER HIGH RISK TYPES Negative Negative 01/22/2023 4:04 PM ERGONOMIC SPECIALIST [facility] Other (Cervical) Non-Blood / Unknown 01/20/2023 1:05 PM ERGONOMIC SPECIALIST 01/21/2023 9:05 AM ERGONOMIC SPECIALIST Narrative [facility] - 01/22/2023 4:04 PM ERGONOMIC SPECIALIST HPV types 16, 18, 31, 33, 35, 39, 45, 51, 52, 56, 58, 59, 66 and 68 DNA were undetectable or below the pre-set threshold. Methodology: Fatou Derick 4800 HPV Test Chelsey Rodriguez MD MICROBIOLOGY Final Re sult Performing Organization Address City/[facility]/ZIP Co de Phone Number [facility] [address] [place] [address], [place] * SCAN-COLONOSCOPY (01/14/2023 1:30 PM ERGONOMIC SPECIALIST) Narrative Procedure Note Inge Crabtree MD - 01/14/2023 12:27 PM CST [facility] [address] [facility], [address], [place] [address] Patient Name: Sonja Mobley Gender: Female Exam Date: 01/14/2023 Visit Number: [id number] Age: 62 Years Date of : 1960 Attending MD: Inge Crabtree MD Medical Record#: [id number] Procedure: Colonoscopy Indications: Colorectal cancer screening Referring MD: Referral Self Primary MD: Chelsey Rodriguez MD Medications: Admitting Medications: 0.9% Normal Saline at [facility] Intra Procedure Medications: Patient received monitored anesthesia care. Complications: No immediate complications Procedure: An examination of the heart and lungs was performed and found to be withinacceptable limits. . The patient was therefore deemed a reasonablecandidate for endoscopy and sedation. The risks and benefits of the procedure were explained to the patient.After obtaining informed consent, the patient received monitoredanesthesia care and I passed the scope without difficulty via the rectum to the cecum. The appendiceal orificeand ic valve were identified. The scope was retroflexed during theexamination The quality of the prep was good (Charlie/Gat Split). This was a complete examination throughout the entire colon. Findings: Inflammation. Descriptor(s) - edema - granularity. Pattern - patchy.Location - distal rectum. Maneuver - cold biopsy forceps. Polyp location: ascending colon. Quantity: 1. Size: 8 mm. Polyp shape:sessile. Maneuver: polypectomy was performed with a cold snare. Removal: complete. Retrieval: complete. Bleeding: none. Anal canal: normal Remainder of the exam is normal. Impression: Screening Colonoscopy Colorectal polyp detected on colonoscopy MD impression comments: Suspected prolapse-related changes in the rectum,biopsies pending. Preliminary Plan: The patient and their physician will receive a copy of the pathologyreport as well as pathology-based recommendations for future screening orsurveillance. Pathology Results: A: COLON, ASCENDING, POLYP: 1. Normal colonic mucosa (clinically, 1 polyp) 2. Negative for serrated change, dysplasia, and malignancy B: RECTUM, BIOPSY: 1. Subtle changes suggestive of mechanical injury (see comment) 2. Negative for dysplasia and malignancy COMMENTS B. The fibrosis and crypt distortion suggest mechanical injury. Potentialetiologies include solitary rectal ulcer syndrome due to occult rectalprolapse, prolapsing mucosal folds, inflammatory cloacogenic polyp at theanorectal junction (which is often associated with anal transition zoneprolapse), or chronic mechanical trauma of other nature. MICROSCOPIC A: Performed. Deeper tissue levels were examined. B: Performed SPECIAL STAINING/DEEPER A: Deeper Electronically signed by: Magdalena Desai DO Interpreted at [facility], [address] [place] [address] Orders Instruction(s)/Education: Instruction/Education Timeframe Assessment Colon Cancer Prevention Z12.11 Final Plan: Repeat colonoscopy in 10 years for screening. If you have signs orsymptoms of lower GI illness or a new diagnosis of colon cancer in animmediate family member, you should contact [facility] or your primary providerto discuss whether your next exam should be repeated sooner. We will attempt to contact you at appropriate intervals via U.S. mail. Wemay not be able to find you or contact you at that time, therefore youshould know that the responsibility for following our recommendation restswith you. If you don't hear from us at the time your procedure is due,please contact our office to schedule an appointment. If your contactinformation should change, please contact our office so that we can updateyour record. Additional Comments: The rectal biopsies can be seen in situations where the tissue rubstogether, such as with rectal prolapse or other pelvic floor conditions.No specific treatment is needed for this. However, if you have significantdifficulty expelling stools, even with a high fiber diet, then we couldconsider pelvic floor testing (studies to evaluate how your musclescoordinate to expel stools) to evaluate for abnormalities. _Electronically signed by: Inge Crabtree MD 01/14/2023 cc: Chelsey Rodriguez MD Inge Crabtree MD OTHER Final R esult from Last 3 Months or Most Recently Relevant to Health Maintenance Insurance [employer] [place] [id number] Advance Directives * Full Code (Latest Code Status on File) Date Activated Date Inactivated Comments 02/27/2021 7:11 AM 02/27/2021 4:18 PM Question Answer Comments Code Status Discussion: Unable to Assess Preferences, Provider to review later Care Teams [place] Actor Relationship Specialty Start Date End Date Chelsey Rodriguez MD PCP - General 07/03/09 [place] [address] [place] [address] Rheumatology 02/17/24
--- OUTSIDE RECORDS SUMMARY | 2024-06-29 12:09 | XMS_ITS | Continuity of Care Document ---
Author Organization [facility], [facility] Address [address] [place] [address] Care Team Providers Care Stonecutter Assistant Name Role Phone ROBERT CAZARES Referring Provider Assessment No assessment recorded. Plan of Treatment Reminders Order Date Submit Date Provider Last Modified By Organization Details Last Modified Time Details Appointments URODYNA MICS FU 20 2024 11:30A Liseth Vaughn MD Not available Not available Not available Lab urinaly sis, dipstic k 2024 025 lsitdmitry [facility], [address], [place], [address], 06/09/2024 12:16:10 Referral None recorde d. Procedures [...] (5 RBC/uL ) Not Available [facility] [address], [place], [address], 06/09/2024 12:05:59 06/10/1906/09/2024 urina lysis , dipst ick BILIRUBIN Negati ve Not Available [facility] [address], [place], [address], 06/09/2024 12:05:59 06/10/19 25 06/09/2024 urina lysis , dipst ick UROBILINOGEN 0.2 mg/dL (Norm) Not Available [facility] [address], [place], [address], 06/09/2024 12:05:59 06/10/19 25 06/09/2024 urina lysis , dipst ick KETONES Negati ve Not Available [facility] [address], [place], [address], 06/09/2024 12:05:59 06/10/19 25 06/09/2024 urina lysis , dipst ick PROTEIN Negati ve Not Available [facility] [address], [place], [address], 06/09/2024 12:05:59 06/10/19 25 06/09/2024 urina lysis , dipst ick NITRITES Negati ve Not Available [facility] [address], [place], [address], 06/09/2024 12:05:59 06/10/19 25 06/09/2024 urina lysis , dipst ick GLUCOSE Negati ve Not Available [facility] [address], [place], [address], 06/09/2024 12:05:59 06/10/19 25 06/09/2024 urina lysis , dipst ick p.H. 6.5 Not Available [facility] [address], [place], [address], 06/09/2024 12:05:59 06/10/19 25 06/09/2024 urina lysis , dipst ick S.G. (Specific [place]) 1.010 Not Available [facility] [address], [place], [address], 06/09/2024 12:05:59 06/10/19 25 06/09/2024 urina lysis , dipst ick LEUKOCYTES Negati ve Not Available [facility] [address], [place], [address], 06/09/2024 12:05:59 Result Notes None recorded. Problems Name Problem SNOMED Code Status Onset Date Resolution Date Notes Provider Name and Address Organization Details Recorded Time Overactive urinary bladder 394848976 Active 025 Treva todd [facility] 16:18:04 Problem Notes None recorded. Procedures Surgical History Date Name Laterality Status Provider Name and Address Organization Details Recorded Time 025 Urodynamic Studies completed Treva Julio [facility] 06/28/2024 16:16:58 025 CystoscopyFemale completed Tapan Vaughn MD [address] [place] [address],[address], [place], [address] 06/09/2024 13:12:00 025 Bladder Scan completed Lamont Watkins [facility] 06/09/2024 12:05:54 Imaging Results None recorded. Procedure Notes None recorded. Medical Equipment None Reported. Allergies Allergen ID Allergen Name Allergen Category Reaction Reaction Severity Criticality Documentation Date Start Date Code Code System Note Provider Name and Address Organization Details Recorded Time 905206 Product containin g penicilli n (product) medicatio n Not available Not available Not available 06/09/2024 16884 8006 SNOMED Lamont todd [facility] 5 12:03:12 Medications Name Sig Start Date Stop [...] Updated DateTime 06/09/2024 182.88 cm 27.1 kg/m2 53237.47 g Lamont Watkins [facility] 06/09/2024 12:01:59 Social History Question Answer Notes LastModified by Organizat ion Details LastModified Time Tobacco Smoking Status Never Smoker Lamont Watkins [facility] 06/09/2024 12:05:15 What Is [...] Status Question Answer Note LastModified by Organizat ion Details LastModified Time Do you use any illicit or recreational drugs? No Information not available 06/09/2024 Do you or have you ever used any other forms of tobacco or nicotine? No Information not available 06/09/2024 What is your level of alcohol consumption? Occasional Information not available 06/09/2024 Mental Status None recorded. Family History Nothing Reported. Medical History Condition Response Sexually Transmitted Infection N Diabetes N Other N Bleeding Disorder N High Blood Pressure N Kidney Stones N High Cholesterol N GERD/Acid Reflux N Heart Disease N Cancer Y Depression N Lung Disease N Gynecological HistoryNo gynecological history recorded. Obstetrics History GPAL:G 0 P 0 0 0 0 Immunizations Vaccine Type Date Status Note Provider Nam e and Address Organization Details Recorded Time Td (adult), 2 Lf tetanus toxoid, preservative free, adsorbed 8 completed Not Available [facility] 06/28/2024 15:13:38 Influenza, split virus, trivalent, preservative 2 completed Not Available [facility] 06/28/2024 15:13:38 Tdap 8 completed Not Available [facility] 06/28/2024 15:13:38 Influenza, split virus, trivalent, preservative 8 completed Not Available [facility] 06/28/2024 15:13:38 Influenza, split virus, trivalent, PF 1 completed Not Available [facility] 06/28/2024 15:13:38 Influenza, split virus, trivalent, preservative 2 completed Not Available [facility] 06/28/2024 15:13:38 Tdap 2 completed Not Available [facility] 06/28/2024 15:13:38 Influenza, split virus, trivalent, preservative 4 completed Not Available [facility] 06/28/2024 15:13:38 Influenza, split virus, quadrivalent, PF 5 completed Not Available [facility] 06/28/2024 15:13:38 Influenza, split virus, quadrivalent, PF 6 completed Not Available [facility] 06/28/2024 15:13:38 Influenza, split virus, quadrivalent, PF 7 completed Not Available [facility] 06/28/2024 15:13:38 Influenza, split virus, quadrivalent, PF 8 completed Not Available [facility] 06/28/2024 15:13:38 Influenza, split virus, quadrivalent, PF 9 completed Not Available [facility] 06/28/2024 15:13:38 Influenza, split virus, quadrivalent, PF 0 completed Not Available [facility] 06/28/2024 15:13:38 zoster recombinant 1 completed Not Available [facility] 06/28/2024 15:13:38 Influenza, recombinant, quadrivalent, PF 1 completed Not Available [facility] 06/28/2024 15:13:38 zoster recombinant 2 completed Not Available [facility] 06/28/2024 15:13:38 Influenza, split virus, quadrivalent, PF 2 completed Not Available [facility] 06/28/2024 15:13:38 Tdap 3 completed Not Available [facility] 06/28/2024 15:13:38 Influenza, split virus, quadrivalent, PF 3 completed Not Available [facility] 06/28/2024 15:13:38 Influenza, split virus, trivalent, PF 4 completed Not Available [facility] 06/28/2024 15:13:38 Past Encounters Encounter ID Performer Location Encounter Start Date Encounter Closed Date Diagnosis/Indication Diagnosis SNOMED-CT Code Diagnosis ICD10 Code Diagnosis Note [id number] Tapan Vaughn MD [facility] [address] [place] [address] 06/09/2024 11:35:05 06/10/2024 12:33:30 Overactive urinary bladder 221989495 N32.81 dysfunctio nal voidingcon tinue CIC bid Will need UDS and fu wit hme after Health Concerns Section Related Observation LastModified by Organization Detai ls LastModified Time None Recorded Concern Status LastModified by Organization Details LastModified Time None Recorded Payers Encounter Date Sequence Insurance Name Policy Number Policy Wyatt Covered Member ID Wyatt Member ID Guarantor Name 06/09/2024 1 [employer] [id number] Sonja Mobley [id number] Sonja Mobley Notes Date Note Type Note [...] She tried ditropan that cause some dry mouth/constipatio n. She has to CIC bid to improve her urge incontinence. PMHx: Breast cancer (on anastrazole), sjogrens, lymphedema PSHx: bladder sling 2001, breast lumpectomy UA=trace blood Cysto is normal with some thick mid-urethral vaginal fold/bend; uretra is wide open, neg stress test. Tapan Vaughn MD [address] [facility], [place], [address], [facility] 06/09/2024 13:12:37 OBGyn Episode No OBEpisode recorded.
--- OUTSIDE RECORDS SUMMARY | 2024-06-29 12:09 | XMS_ITS | Patient Health Record ---
Author Organization [facility] Address [address] [place] [address] Care Team Providers Care Machine Helper Name Role Phone Shae Gonzales Primary Care Provider Caitlin Barnett Unavailable [phone] Allergies Allergen (clinical drug ingredient) Drug/Non Drug Allergy documented on EMR Reaction Allergy Type Onset Date Status amoxicillin Amoxicillin Unknown Drug Allergy Act cal leflunomide Arava Unknown Drug Allergy Activ e cephalexin Cephalexin Unknown Drug Allergy Activ e Methotrexate Unknown Drug Allergy Acti ve minocycline Minocycline HCl Unknown Drug Allergy Active penicillin G Penicillin G Sodium Unknown Drug Allergy Active Reason For Referral No Information Medications Medication SIG (Take, Route, Frequency, Duration) Notes Start Date End Date Status Cephalexin 500 MG 1 capsule Orally every 12 hrs for 10 day(s) taking twice day for a toe infection Active Imvexxy Starter Pack 10 MCG 1 _insert Vaginal QHS for 30 days 04/15/2018 Active Imvexxy Maintenance Pack 10 MCG 1 _insert Vaginal Two times a Week for 90 days 04/15/2018 Active Vitamin D3 1000 UNIT 1 tablet Orally Once a day for 30 day(s) Active Estradiol 1 MG 1 tablet Orally Daily for Three Weeks, 1 Week off for 30 day(s) daily Active Fluconazole 100 MG 1 tablet Orally Three times a Week for 10 day(s) as needed Active Gabapentin 400 MG 1 capsule Orally Twice a day for 30 day(s) 5 capsules once daily at bedtime Active Medroxyprogesterone Addi-Lido daily Active Multivitamin Adult - as directed Orally daily Active SF 5000 Plus 1.1 % as directed Dental flouride toothpaste at bedtime Active Social History Tobacco Use: Social History Observation Description Date Details (start date - stop date) Never Smoker NA - NA Tobacco Use/Smoking Question Answer Notes Are you a nonsmoker Alcohol Screen (Audit-C) Question Answer Notes Did you have a drink contain ing alcohol in the past year? Yes How often did you have a dri nk containing alcohol in the past year? 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 [employer]. 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 [employer]. 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 [employer]. 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 [employer]. 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 Problems Problem Type SNOMED Code ICD Code Onset Dates Problem Status W/U Status Risk Notes Problem SI - Stress incontinence (58042793) Stress incontinence (female) (male) (N39.3) Active confirmed Problem Urge incontinence of urine (55309540) Urge incontinence (N39.41) Active confirmed Problem Retention of urine (902374610) Retention of urine, unspecified (R33.9) Active confirmed Problem Frequency of urination (983499671) Frequency of urination (R35.0) Active confirmed Problem Post-menopausal atrophic vaginitis (N95.2) Active confirmed Plan Of Treatment No Information Insurance Providers Payer Name Payer Address Payer Phone Subscriber Number Group Number Insured Name Patient Relationship to Insured Coverage Start Date Coverage End Date [employer] (PayerI D [id number]) (Ins. Bill) [address] [place], [place] [id number] IFB JESSI CUMMINGS Self - patient is the insured Medical (General) History Medical History History ICD Code Sjogren's syndrome Overactive Bladder stress incontinence back issues Surgical History Surgery Date(Month/Year) urethral sling 2002 urethral bulking- likely collagen 2011 urethral bulking- macroplastique 2014 urethral bulking- macroplastique 2016 cystoscopic bladder botox 100 units 2017 vein stripping back disectomy x2 Bladder Botox
--- OUTSIDE RECORDS SUMMARY | 2024-06-29 12:09 | XMS_ITS | Continuity of Care Document ---
Author Organization [facility], [facility] Address [address] [place] [address] Care Team Providers Care Teacher Associate Name Role Phone ROBERT CAZARES Referring Provider Assessment No assessment recorded. Plan of Treatment Reminders Order Date Submit Date Provider Last Modified By Organization Details Last Modified Time Details Appointments URODYNAM ICS FU 20 2024 11:30A M Tapan Vaughn MD Not available Not available Not available Lab None recorded . Referral None recorded . Procedures None recorded . Surgeries None recorded . Imaging None recorded . Medication Orders None recorded . Patient TargetsNo targets recorded. Patient InstructionsNo instructions recorded. Reason for Referral None Reported. Problems Name Problem SNOMED Code Status Onset Date Resolution Date Notes Provider Name and Address Organization Details Recorded Time Overactive urinary bladder 966441277 Active 025 Treva todd [facility] 16:18:04 Problem Notes None recorded. Procedures Surgical History Date Name Laterality Status Provider Name and Address Organization Details Recorded Time 025 Urodynamic Studies completed Treva Julio [facility] 06/28/2024 16:16:58 025 CystoscopyFemale completed Tapan Vaughn MD [address] [facility],[address], [place], [address], [facility] 06/09/2024 13:12:00 025 Bladder Scan completed Lamont Watkins [facility] 06/09/2024 12:05:54 Imaging Results None recorded. Procedure Notes None recorded. Medical Equipment None Reported. Allergies Allergen ID Allergen Name Allergen Category Reaction Reaction Severity Criticality Documentation Date Start Date Code Code System Note Provider Name and Address Organization Details Recorded Time 031054 Product containin g penicilli n (product) medicatio n Not available Not available Not available 06/09/2024 17255 [id number] VIR[address] [facility] 12:03:12 Medications Name Sig Start Date Stop [...] Not Available Not Available Not Available Vitals None Recorded Social History Question Answer Notes LastModified by Organizat ion Details LastModified Time Tobacco Smoking Status Never Smoker Lamont Watkins [facility] 06/09/2024 12:05:15 What Is Your Level [...] preservative free, adsorbed 8 completed Not Available [facility] 06/28/2024 15:13:38 Influenza, split virus, trivalent, preservative 2 completed Not Available [facility] 06/28/2024 15:13:38 Tdap 8 completed Not Available [facility] 06/28/2024 15:13:38 Influenza, split virus, trivalent, preservative 8 completed Not Available [facility] 06/28/2024 15:13:38 Influenza, split virus, trivalent, PF 1 completed Not Available [facility] 06/28/2024 15:13:38 Influenza, split virus, trivalent, preservative 2 completed Not Available [facility] 06/28/2024 15:13:38 Tdap 2 completed Not Available [facility] 06/28/2024 15:13:38 Influenza, split virus, trivalent, preservative 4 completed Not Available [facility] 06/28/2024 15:13:38 Influenza, split virus, quadrivalent, PF 5 completed Not Available [facility] 06/28/2024 15:13:38 Influenza, split virus, quadrivalent, PF 6 completed Not Available [facility] 06/28/2024 15:13:38 Influenza, split virus, quadrivalent, PF 7 completed Not Available [facility] 06/28/2024 15:13:38 Influenza, split virus, quadrivalent, PF 8 completed Not Available [facility] 06/28/2024 15:13:38 Influenza, split virus, quadrivalent, PF 9 completed Not Available [facility] 06/28/2024 15:13:38 Influenza, split virus, quadrivalent, PF 0 completed Not Available [facility] 06/28/2024 15:13:38 zoster recombinant 1 completed Not Available [facility] 06/28/2024 15:13:38 Influenza, recombinant, quadrivalent, PF 1 completed Not Available [facility] 06/28/2024 15:13:38 zoster recombinant 2 completed Not Available [facility] 06/28/2024 15:13:38 Influenza, split virus, quadrivalent, PF 2 completed Not Available [facility] 06/28/2024 15:13:38 Tdap 3 completed Not Available [facility] 06/28/2024 15:13:38 Influenza, split virus, quadrivalent, PF 3 completed Not Available [facility] 06/28/2024 15:13:38 Influenza, split virus, trivalent, PF 4 completed Not Available [facility] 06/28/2024 15:13:38 Past Encounters Encounter ID Performer Location Encounter Start Date Encounter Closed Date Diagnosis/Indication Diagnosis SNOMED-CT Code Diagnosis ICD10 Code Diagnosis Note [id number] Tapan Vaughn MD [facility] [address] [place] [address] 06/09/2024 11:35:05 06/10/2024 12:33:30 Overactive urinary bladder 255088609 N32.81 dysfunctio nal voidingcon tinue CIC bid Will need UDS and fu wit hme after [id number] MD NARA [facility] [address] [place] [address] 06/28/2024 15:09:15 06/29/2024 11:28:05 Overactive urinary bladder 561964425 N32.81 dysfunctio nal voidingcon tinue CIC bid Will need UDS and fu wit hme after Health Concerns Section Related Observation LastModified by Organization Detai ls LastModified Time None Recorded Concern Status LastModified by Organization Details LastModified Time None Recorded Payers Encounter Date Sequence Insurance Name Policy Number Policy Wyatt Covered Member ID Wyatt Member ID Guarantor Name 06/28/2024 1 [employer] [id number] Sonja Camarenasumi [id number] Sonja Mobley Notes Date Note Type Note Provider Name and Address Organization Details Recorded Time 06/28/2024 text/html Date of Service: 06/28/24 Indication: [...] leak detected and a Peak Pressure of 49dsR2T.A Cough Leak Point Pressure Study was performed at 123ml with no leak detected and a Peak Pressure of 66beM4C.A Cough Leak Point Pressure Study was performed at 146ml with no leak detected and a Peak Pressure of 80wbU9K.A Valsalva Leak Point Pressure Study was performed at 123ml with no leak detected and a Peak Pressure of 57grJ9P.A Valsalva Leak Point Pressure Study was performed at 146ml with no leak detected and a Peak Pressure of 262maE4G. Pressure flow study: Patient voided 361 mL [...] for UTI prevention Tika name: PARTHA Freitas [place] [facility] 06/28/2024 16:31:28 OBGyn Episode No OBEpisode recorded.
--- OUTSIDE RECORDS SUMMARY | 2024-06-29 12:09 | XMS_ITS | Encounter Summary ---
Author Organization [facility] Address [facility] [place] [address] Care Team Providers Care Sales And Marketing Associate Name Role Phone Clinic, [facility] Primary Care Provider + Chelsey Rodriguez MD Unavailable [phone] Reason for Visit * Reason Onset Date Comments Appointment 05/18/2020 [place] Encounter Details Date Type Department Care Team (Late st Contact Info) Description 05/18/2020 [facility] [address] [place] [address] Lindy Lewis MD [address] [place] [address] Appointment ([place]) Social History Tobacco Use Types Packs/Day Years [...] on file 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 Pt would like to have a in person visit. Protocols ask for telephone. Please call Pt back to schedule. Thank you Action Taken: Message routed to: [facility] Derm Travel Screening: Not Applicable documented in this encounter Plan of Treatment Not on file documented as of this encounter Visit Diagnoses Not on filedocumented in this encounter Care Teams Sales And Marketing Associate Relationship Specialty Start Date End Date [address] [phone] PCP - General 11/15/10 Chelsey Rodriguez MD [facility] [id number] [place] [id number] 11/15/10 documented as of this encounter
--- OUTSIDE RECORDS SUMMARY | 2024-06-29 12:09 | XMS_ITS | Clinical Summary ---
Author Organization [facility] [employer] Address [address], [place] [address] Care Team Providers Care Lead Auditor Name Role Phone Chelsey Rodriguez MD Primary Care Provider [phone] Source Comments You are receiving this document as you are listed as the primary care provider,follow-up provider, or the patient has been referred to you for consultation.This is in compliance with the Medicare andMedicaid EHR Incentive Program,which states Providers who transition their patient to another setting of careor provider of care or refers their patient to another provider of care shouldprovide summary care record for each transition of care or referral. [place] Allergies Active Allergy Reactions Criticality Noted Date Comments Cephalexin Nausea 01/08/2012 Hydroxychloroquine Arrhythmia High 05/08/2011 Minocycline Rash 07/23/2011 Medications Multiple Vitamins-Mineral s (MULTIVITAMIN OR) Take 1 tablet by mouth daily (every 24 hours). 100 13 6 Active FLUoxetine (AKA PROZAC) 10 MG capsule Take 1 capsule by mouth daily (every 24 hours). 30 capsule 11 2 Active omega-3 fatty acids (FISH OIL) 1000 MG capsuleIndicatio ns:Sicca syndrome (HRC),Inflammato ry neuropathy (HRC),Panniculit is, unspecified site,Encounter for long-term (current) use of other medications Take 1,000 mg by mouth 2 times daily. 2 Active cycloSPORINE (AKA RESTASIS) 0.05 % eye drop emulsion Place 1 drop into both eyes 2 times daily. 60 each 12 2 Active Additional Information Patient not taking.Reported on 01/05/2019 Methotrexate, Anti-Rheumatic, (AKA RHEUMATREX) 2.5 MG tabletIndication s:Sicca syndrome (HRC),Inflammato ry neuropathy (HRC),Panniculit is, unspecified site,Encounter for long-term (current) use of other medications Take 10 tablets by mouth once a week. 5 tabs in am, 5 tabs in pm only one day each week 32 tablet 12 3 Active Additional Information Patient not taking.Reported on 01/05/2019 ferrous gluconate 324 (37.5 FE) MG tablet Take 324 mg by mouth daily (every 24 hours). 2 times daily 4 Active Chelated Zinc 50 MG Take by mouth. 4 Active Cholecalciferol 2000 UNITS Take by mouth. 4 Active gabapentin (NEURONTIN) 300 MG capsule Take 300 mg by mouth. 6 Active fluconazole (DIFLUCAN) 150 MG tablet Take 150 mg by mouth. 7 Active estradiol (ESTRACE) 1 MG tablet Take 1 mg by mouth. 7 Active gabapentin (NEURONTIN) 300 MG capsule She takes 4 every night. 7 Active sodium fluoride (AKA DENTA,PREVIDENT) 1.1 % cream Colby 2x/day. Do not eat or drink for 30 minutes after. 51 g 6 8 Active sodium fluoride (AKA DENTA,PREVIDENT) 1.1 % cream Colby 2x/day. Do not eat or drink for 30 minutes after. 153 g 6 9 Active diphenhydramine/ alum-mag antacid/viscous lidocaine (MAGIC MOUTHWASH) oral suspension Swish and spit 5 mL in mouth as needed for Pain. Contains: 1:1:1 ratio of dyphenhydramine , lidocaine 2%, alum-mag antacid 300 mL 1 9 Active sodium fluoride (PREVIDENT) 1.1 % cream Colby 2x/day. Do not eat or drink for 30 minutes after. 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 Sicca syndrome 05/08/2011 Social History Tobacco Use Types Packs/Day Years Used Date Smoking Tobacco: Never Smokeless Tobacco: Never Alcohol Use Standard Drinks/Week Comments Yes 0 (1 standard drink = 0.6 oz pur e alcohol) 1-2 drinks 2-4 times amonth Comments Unknown Sex and Gender Information Value Date Recorded Sex Assigned at Not on file Legal Sex Female 4:10 AM CDT Gender Identity Not on file Sexual Orientation Not on file Last Filed Vital Signs Vital Sign Reading Time Taken Comments Blood Pressure 115/71 10/22/2017 9:37 AM CDT Pulse 84 01/05/2019 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 PM 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 Temperature - - Respiratory Rate - - Oxygen Saturation - - Inhaled Oxygen Concentration - - Weight 88.4 kg (194 lb 14.2 oz) 013 11:22 AM CDT Height 180.3 cm (5' 11) 07/22/2011 4:58 PM CDT Body Mass Index 27.18 07/22/2011 4:58 PM CDT Plan of Treatment Health Maintenance Due Date Last Done Comments Cervical Cancer Screening Due 1962 Colon Cancer Screening Plan Due 1962 Hep C Screening (Preventive Services) 1962 HIV Screening (Preventive Services) 1978 Adult Preventive Visit 1980 Cholesterol 11/25/2007 Pneumococcal Vaccine 50+ Yrs (1 of 1 - PCV) 2012 Zoster/Shingles Vaccine (1 of 2) 2012 Mammogram 12/08/2020 12/09/2019, 10/02/2018, 10/20/2017 DTaP/Tdap/Td Vaccine (3 - Tdap) 01/30/2022 01/31/2012, 05/14/2007, 05/14/2007, Additional history exists COVID-19 Vaccine ( - season) 2023 Influenza Vaccine (Season Ended) 2024 02/07/2020, 01/19/2019, 12/29/2017, Additional history exists RSV Vaccine (1 - 1-dose 75+ series) 2037 HepA Vaccine Aged Out No longer eligi ble based on patient's age to complete this topic HepB Vaccine Aged Out No longer eligi ble based on patient's age to complete this topic Hib Vaccine Aged Out No longer eligi ble based on patient's age to complete this topic IPV (Polio) Vaccine Aged Out No longe r eligible based on patient's age to complete this topic MCV4 Vaccine Aged Out No longer eligi ble based on patient's age to complete this topic Meningococcal B Vaccine Aged Out No l onger eligible based on patient's age to complete this topic Insurance [employer] INS[employer]ED DENTAL Advance Directives * Full Code (Latest Code Status on File) Date Activated Date Inactivated Comments 07/23/2011 9:07 AM 07/23/2011 8:54 PM Care Teams Lead Auditor Relationship Specialty [place] [address] [place] [address] PCP - General Family Practice 04/05/21
--- OUTSIDE RECORDS SUMMARY | 2024-06-29 12:09 | XMS_ITS | Clinical Summary ---
Author Organization [facility] Address [address] [facility] [place] [address] Care Team Providers Care Exhibit Artist Name Role Phone Clinic, [facility] Primary Care Provider + Chelsey Rodriguez MD Unavailable [phone] Allergies Active Allergy Reactions Criticality Noted Date Comments Amoxicillin Hives 02/16/2014 Leflunomide Rash Low 02/02/2016 Cyclosporine 01/31/2014 Hydroxychloroquine 02/02/2016 Methotrexate 02/02/2016 Minocycline 02/02/2016 Penicillins Rash Medium 12/20/2015 Solifenacin 02/02/2016 Medications MAGIC MOUTHWASH, ENTER INGREDIENTS IN COMMENTS,Indicati ons:Mouth sores Swish and spit 5-10 mLs in mouth every 6 hours as needed 180 mL 1 4 Active gabapentin (NEURONTIN) 300 MG capsule Take 300 mg by mouth 6 Active betamethasone dipropionate (DIPROSONE) 0.05 % cream Apply topically 2 times daily Active Cholecalciferol (VITAMIN D3 PO) Take 2,000 Units by mouth daily Active Estradiol (ESTRACE PO) Take 1 mg by mouth daily Active MedroxyPROGESTERo ne Acetate (PROVERA PO) Take 2.5 mg by mouth daily Active Sodium Fluoride (SF 5000 PLUS) 1.1 % CREA Active multivitamin, therapeutic with minerals (MULTI-VITAMIN) TABS tablet Take 1 tablet by mouth daily Active Calcium Carbonate-Vit D-Min (CALTRATE PLUS OR) Take 1 tablet by mouth Active ibuprofen (ADVIL/MOTRIN) 600 MG tabletIndications :Acute post-operative pain Take 1 tablet (600 mg) by mouth every 6 hours as needed for pain (mild) 30 tablet 0 6 Active HYDROcodone-aceta minophen (NORCO) 5-325 MG per tabletIndications :Acute post-operative pain Take 1-2 tablets by mouth every 4 hours as needed for other (Moderate to Severe Pain) 30 tablet 0 6 Active ciprofloxacin (CIPRO) 500 MG tabletIndications :Dysuria Take 1 tablet (500 mg) by mouth 2 times daily 14 tablet 1 7 Active darifenacin (ENABLEX) 7.5 MG 24 hr tabletIndications :Urgency of urination Take 1 tablet (7.5 mg) by mouth daily 30 tablet 3 7 Active mirabegron (MYRBETRIQ) 25 MG 24 hr tabletIndications :Urgency of urination Take 1 tablet (25 mg) by mouth daily 30 tablet 3 7 Active ciprofloxacin (CIPRO) 500 MG tabletIndications :Acute cystitis without hematuria Take 1 tablet (500 mg) by mouth 2 times daily 10 tablet 1 8 Active fluconazole (DIFLUCAN) 150 MG tabletIndications :Yeast infection Take 1 tablet (150 mg) by mouth every 3 days 2 tablet 1 8 Active Active Problems Patient Care Coordination No te Formatting of this note migh t be different from the original. [email or web address] Problem Noted Date Diagnosed Date Stress incontinence 10/02/2015 Sjogren's syndrome 01/31/2014 Pain in joint, upper arm 11/20/2007 Resolved Problems Problem Noted Date Diagnosed Date Resolved Date Elbow pain, right 03/12/2015 04/07/2015 Leg weakness 12/23/2011 01/29/2012 Elbow pain 03/28/2010 04/27/2010 Lateral epicondylitis 03/28/20102010 Overview (11/11/2014): Problem list name updated by automated process. Provider to review Immunizations Immunization Administration Dates Next Due TDAP (Adacel,Boostrix) 01/31/2012,05/14/2007 Family History Medical History Relation Comments Breast Cancer Other 1 Diabetes Other 2 Relation Status Comments Father Alive Mother Alive Other 1 Other 2 Social History Tobacco Use Types Packs/Day Years Used Date Smoking Tobacco: Never Smokeless Tobacco: Never Tobacco Cessation:Counseling Given: No Alcohol Use Standard Drinks/Week Comments Yes 0 (1 standard drink = 0.6 oz pur e alcohol) SOCIAL Adolescent Education Answer Date Record ed Getting School Help Needed Not on file 11/17 Comments No Sex and Gender Information Value Date Recorded Sex Assigned at Not on file Legal Sex Female 3:18 AM AUDIO VISUAL AIDE Gender Identity Not on file Sexual Orientation Not on file Last Filed Vital Signs Vital Sign Reading Time Taken Comments Blood Pressure 116/68 12/31/2016 10:54 AM AUDIO VISUAL AIDE Pulse 82 01/31/2014 3:29 PM AUDIO VISUAL AIDE Temperature 36.1 C (97 F) 02/02/2016 11:09 AM AUDIO VISUAL AIDE Respiratory Rate 15 02/02/2016 12:15 PM AUDIO VISUAL AIDE Oxygen Saturation 99% 02/02/2016 12:00 PM AUDIO VISUAL AIDE Inhaled Oxygen Concentration - - Weight 92.1 kg (203 lb) 12/31/2016 10:54 AM AUDIO VISUAL AIDE Height 182.9 cm (6') 12/31/2016 10:54 AM AUDIO VISUAL AIDE Body Mass Index 27.53 12/31/2016 10:54 AM AUDIO VISUAL AIDE Plan of Treatment Not on file Medical Devices Implanted Type Area Supervisor Irrigation Device Identifier Shelf Expiration Date Model / Serial / Lot Imp Macroplastique Bulking Agent Inj Syr 2.5ml Mpq-2.5 Implanted:Qty: 1 on 02/02/2016 by Raz Buckner MD at [facility] Other N/A: Bladder COGENTIX 01/07/2017 MPQ-2.5 / / [id number] Care Teams Exhibit Artist Relationship Specialty Start Date End Date [facility], [facility] [id number] [place] [phone] PCP - General 11/15/10 Chelsey Rodriguez MD [address] [address] 11/15/10
--- OUTSIDE RECORDS SUMMARY | 2024-06-29 12:09 | XMS_ITS | Encounter Summary ---
Author Organization [employer] Address [address] [facility] [address] Care Team Providers Care Vice President Education Name Role Phone Clinic, [facility] Primary Care Provider + Chelsey Rodriguez MD Unavailable [phone] Reason for Visit * Reason Onset Date Comments Patient Request for Note/Letter 11/11/2017 Encounter Details Date Type Department Care Team (Late st Contact Info) Description 11/11/2017 Telephone [facility] [place] [address] [place] [address] [phone] Raz Buckner MD [address] [id number] Patient Request for Note/Letter Social History Tobacco Use Types Packs/Day Years [...] on file Legal Sex Female 3:18 AM SSIS ARCHITECT Gender Identity Not on file Sexual Orientation Not on file documented as of this encounter Miscellaneous Notes * Telephone Encounter - Lori Ortiz APRN DIRECTOR OF CATEGORY MANAGEMENT - 12/08/2017 3:12 PM CDT I have talked with Dr. Buckner and he dictated letter regarding botox for preferred one. I have sent records of visits with Dr. Buckner and letter, were faxed to Archie at [facility] [phone].JOSUE Quiroga * Telephone Encounter - Radhika Guaman - 12/08/2017 11:13 AM CDT PLEASE CALL PT --- [phone] CELL * Telephone Encounter - Lori Ortiz APRN CNP - 11/19/2017 8:54 AM CDT Message given to Dr. Buckner to do letter. JOSUE Quiroga * Telephone Encounter - Radhika Guaman - 11/11/2017 10:19 AM CDT Calling regarding bladder botox from 01/28/17 that wasn't covered. Patient has Archie from [facility] working on appeal - he needs letter of necessity sent (previousletter written unavailable) Fax number - [phone] documented in this encounter Plan of Treatment Not on file documented as of this encounter Visit Diagnoses Not on filedocumented in this encounter Care Teams Vice President Education Relationship Specialty Start Date End Date [facility], [facility] [id number] [place] [address] [phone] PCP - General 11/15/10 Chelsey Rodriguez MD [facility] [id number] [place] [id number] 11/15/10 documented as of this encounter
--- OUTSIDE RECORDS SUMMARY | 2024-06-29 12:09 | XMS_ITS | CCD ---
Author Name [facility], [id number] Address [address] [facility] [address] [address] Organization [facility] Address [address] [facility] [address] [place] [address] Care Team Providers Care Health And Safety Technician Name Role Phone Isadora Richards Unavailable Unavailable Care Plan Date Type Value 01/26/2024 APPOINTMENT OV 20 MIN 06/17/2023 LABORDER Mammogram, 3D wi th tomosynthesis Reason for Visit OV 20 MIN Encounters Date Name 01/26/2024 Lymphedema Functional Status Date Name Score 06/17/2023 Karnofsky performance status 100 02/26/2022 Karnofsky performance status 100 10/10/2021 Karnofsky performance status 100 Immunizations Date Name Route Dose Instructions Refusal Reason Stat us Flu vaccine - Adult Comp leted Medications Date Name Route Dose Frequency Instructions Start Date End Date Status Cholecalciferol Oral active Lidocaine-Prilocaine Topical Cream 2.5 %-2.5 % stopped Ondansetron Oral stopped Gabapentin Oral s topped Triamcinolone Topical Cream 0.1 % active Prednisone Oral s topped Nystatin Oral Suspension stopped Ibuprofen Oral ac tive Betamethasone Dipropionate Topical Cream 0.05 % active Gabapentin Oral po 2.0 daily a ctive Tacrolimus Topical Ointment 0.1 % activ e Sennosides-Docusate Sodium Oral 8.6 mg-50 mg stopped Anastrozole Oral stopped Hydrocodone-Acetamin ophen Oral 5 mg-325 mg stopped Codeine-Guaifenesin Oral Liquid 10 mg-100 mg/5 mL stopp ed Multivitamins Oral Tablet active Fluconazole Oral Tablet active Escitalopram Oral inactive Problems Diagnosis Status Date of Diagnosi s Screening mammography (procedure) Active History of malignant neoplasm of breast (situati on) Active Estrogen receptor positive status [ER+] Inactive Hot flashes Active Estrogen receptor positive status [ER+] Active Breast pain Active Vaginal dryness (disorder) Active Lymphedema Active Procedures Date Category Name Instructions Status 07/26/2024 Physician Order RTC 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
--- NOTE | 2024-06-29 12:45 | CRLHL7_ITS ---
For Patients: As a result of the Cures Act, medical imaging exams and procedure reports are released immediately into your electronic medical record. You may view this report before your referring provider. If you have questions, please contact your health care provider. INDICATION: Fall, confusion and pain TECHNIQUE: CT cervical spine without contrast. COMPARISON: None FINDINGS: Vertebrae: Alignment is normal. There are no fractures or suspicious bony lesions. Discs and facet joints: Mild facet hypertrophy C3-4 without significant stenosis. Facet hypertrophy C4-5 without significant stenosis. Disc space narrowing with posterior osteophytes C5-6 causing mild bilateral foraminal stenosis. Facet hypertrophy with posterior osteophyte at C6-7 causing mild left foraminal stenosis. Facet hypertrophy C7-T1 without significant stenosis. Extraspinal findings: Ossicles in the nuchal ligament. IMPRESSION: Mild degenerative changes as detailed above without evidence of acute cervical spine fracture. Please note that all CT scans at this facility use dose modulation, iterative reconstruction, and/or weight-based dosing when appropriate to reduce radiation dose to as low as reasonably achievable. Dictated by Michi Pinzon MD @ 06/29/2024 1:53:27 PM (Electronically Signed)
--- NOTE | 2024-06-29 12:45 | CRLHL7_ITS ---
For Patients: As a result of the Century Cures Act, medical imaging exams and procedure reports are released immediately into your electronic medical record. You may view this report before your referring provider. If you have questions, please contact your health care provider. INDICATION: Fall, confusion. Chest, abdomen and back pain. TECHNIQUE: CT chest, abdomen and pelvis acquired with 98 cc Isovue 370 intravenous contrast. COMPARISON: None. FINDINGS: CHEST: Cardiovascular structures: The great vessels are unremarkable. Thoracic aorta is normal in caliber. No pericardial effusion. Pulmonary artery unremarkable. Mediastinum and connie: No mass or adenopathy. Lungs and pleura: Lungs and pleural spaces are clear. No suspicious nodules, infiltrates, or effusions. Chest wall and axilla: Left breast surgical clips. Bones: No suspicious bone lesions. Unremarkable for age. ABDOMEN AND PELVIS: Liver: Unremarkable. Gallbladder and bile ducts: Unremarkable. Pancreas: Unremarkable. Spleen: Unremarkable. Adrenal glands: Unremarkable. Kidneys: Unremarkable. GI tract: The stomach is unremarkable. No dilated loops of large or small intestine. Vascular structures: Atherosclerosis without abdominal aortic aneurysm. Lymph nodes: Unremarkable. Miscellaneous: Unremarkable. No free air or significant free fluid. Pelvic Organs: Uterus and adnexa unremarkable. Small amount of air noted within the bladder lumen. Bones: Degenerative disc disease lumbar spine. IMPRESSION: 1. No evidence of acute traumatic injury to the chest, abdomen or pelvis. 2. Small amount of air within the bladder lumen which can be seen in recent instrumentation or cystitis. Please note that all CT scans at this facility use dose modulation, iterative reconstruction, and/or weight-based dosing when appropriate to reduce radiation dose to as low as reasonably achievable. Dictated by Michi Pinzon MD @ 06/29/2024 2:05:17 PM (Electronically Signed)
--- NOTE | 2024-06-29 12:45 | CRLHL7_ITS ---
For Patients: As a result of the Century Cures Act, medical imaging exams and procedure reports are released immediately into your electronic medical record. You may view this report before your referring provider. If you have questions, please contact your health care provider. INDICATION: Fall, headache and confusion TECHNIQUE: CT head without contrast. COMPARISON: None. FINDINGS: CSF spaces: Within normal limits for age. Brain parenchyma: The khalil-white differentiation is normal. No sign of mass, hemorrhage, or midline shift. Skull base and calvarium: Patchy opacification right posterior ethmoidal air cell. The visualized orbits are grossly unremarkable. No skull fractures. IMPRESSION: Unremarkable noncontrast head CT. Please note that all CT scans at this facility use dose modulation, iterative reconstruction, and/or weight-based dosing when appropriate to reduce radiation dose to as low as reasonably achievable. Dictated by Michi Pinzon MD @ 06/29/2024 1:50:36 PM (Electronically Signed)
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
[2024-06-29 13:02] LABS: HCO3 VBG 26 mmol/L (21-28); Lactate* 1.3 mmol/L (0.5-1.9); PCO2 VBG 41 mmHG (40-50); PO2 VBG 33.6 mmHG (25-47); pH VBG 7.406 (7.32-7.43)
[2024-06-29] MEDS: 0.9 % SODIUM CHLORIDE 1000 ml 1,000 ML IV ×2 (13:08→15:06)
[2024-06-29 13:09] LABS: Basophils Absolute Auto 0.01 K/uL (0.00-0.30); Basophils Percent Auto 0.2 % (0.0-3.0); Hematocrit 35.8 % (33.0-51.0); Hemoglobin* 11.9 gm/dL (12.0-16.0); Mean Corpuscular HGB Conc 33 gm/dL (32-36); Mean Corpuscular Hemoglobin 30 pg (26-34); Mean Corpuscular Volume 89 fL (80-100); Neutrophils Percent Auto 85.8 % (42.0-72.0); Platelet Count* 177 K/uL (140-440); RDW Coefficient of Variation % 14.4 % (11.5-15.5); Red Blood Count 4.01 m/uL (4.00-5.20); White Blood Count* 6.45 K/uL (4.50-11.00)
[2024-06-29 13:21] LABS: Albumin* 4.4 g/dL (3.3-5.0); Chloride* 101 mmol/L (96-114); Potassium* 4.1 mmol/L (3.6-5.1); Sodium* 133 mmol/L (135-149)
[2024-06-29 13:23] LABS: Alanine Aminotransferase* 26 U/L (4-35); Anion Gap 7 mEq/L (7-15); Aspartate Amino Transferase* 29 U/L (12-35); Blood Urea Nitrogen* 11 mg/dL (7-30); Carbon Dioxide* 25 mmol/L (20-32); Creatinine* 0.8 mg/dL (0.5-1.5); Est. Creatinine Clearance* 68.18; Estimated Glomerular Filt Rate 84 ml/min
[2024-06-29 13:24] LABS: Alkaline Phosphatase* 76 U/L (40-150); Bilirubin Total* 0.9 mg/dL (0.1-1.5); Glucose* 110 mg/dL (60-115); Magnesium* 2.2 mg/dL (1.5-2.6); Total Protein* 8.2 g/dL (6.0-8.3)
--- OUTSIDE RECORDS SUMMARY | 2024-06-29 13:24 | XMS_ITS | Clinical Summary ---
Author Organization [employer] Address [address], [place] [address] Care Team Providers Care Digital Forensic Analyst Name Role Phone Chelsey Rodriguez MD Primary Care Provider [phone] Source Comments You are receiving this document [...] for each transition of care or referral. [employer] Allergies Active Allergy Reactions Criticality Noted Date [...] sodium fluoride (AKA DENTA,PREVIDENT) 1.1 % cream [place] 2x/day. Do not eat or drink for 30 minutes after. 51 g 6 8 Active sodium fluoride (AKA DENTA,PREVIDENT) 1.1 % cream [place] 2x/day. Do not eat or drink for 30 minutes after. 153 g 6 9 Active diphenhydramine/ alum-mag antacid/viscous lidocaine (MAGIC MOUTHWASH) oral suspension Swish and spit 5 mL in mouth as needed for Pain. Contains: 1:1:1 ratio of dyphenhydramine , lidocaine 2%, alum-mag antacid 300 mL 1 9 Active sodium fluoride (PREVIDENT) 1.1 % cream [place] 2x/day. Do not eat or drink for [...] AM CDT Pulse 84 01/05/2019 12:11 PM [employer] Temperature - - Respiratory Rate - - [...] 9:07 AM 07/23/2011 8:54 PM Care Teams Digital Forensic Analyst Relationship Specialty [place] [address] [place] [address] PCP - General Family Practice 04/05/21
--- OUTSIDE RECORDS SUMMARY | 2024-06-29 13:24 | XMS_ITS | Encounter Summary ---
Author Organization [facility] Address [address] [facility] [place] [address] Care Team Providers Care Applications Development Consultant Name Role Phone Clinic, 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 Buckner and he dictated letter regarding botox for preferred one. I have sent records of visits with Dr. Buckner and letter, were faxed to Archie at [facility] [phone].JOSUE Quiroga * Telephone Encounter - Radhika Guaman - 12/08/2017 11:13 AM CDT PLEASE CALL PT --- [phone] CELL * Telephone Encounter - Lori Ortiz APRN CNP - 11/19/2017 8:54 AM CDT Message given to Dr. Buckner to do letter. JOSUE Quiroga * Telephone Encounter - Radhika Guaman - 11/11/2017 10:19 AM CDT Calling regarding bladder botox from 01/28/17 that wasn't covered. Patient has Archie from [facility] working on appeal - he needs letter of necessity sent (previousletter written unavailable) Fax number - [phone] documented in this encounter Plan of Treatment Not on file documented as of this encounter Visit Diagnoses Not on filedocumented in this encounter Care Teams Applications Development Consultant Relationship Specialty Start Date End Date [facility], [facility] [address] [place] [address] [phone] PCP - General 11/15/10 Chelsey Rodriguez MD [facility] [id number] [place] [id number] 11/15/10 documented as of this encounter
--- OUTSIDE RECORDS SUMMARY | 2024-06-29 13:24 | XMS_ITS | Encounter Summary ---
Author Organization [employer] Address [address] 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 They are needing clinical documentation and notes from office visits, how her ADL's are affected and tried and fails. The information can be faxed to Utilization PARTHA Luis at [phone]. The pt's case number is [id number]. Routing to JAMIA Payton. documented in this encounter Plan of Treatment Not on file documented as of this encounter Visit Diagnoses Not on filedocumented in this encounter Care Teams Disbursing Officer Relationship Specialty Start Date End Date [facility], [facility] [address] [place] [phone] PCP - General 11/15/10 Chelsey Rodriguez MD [facility] [address] [place] [address] 11/15/10 documented as of this encounter
--- OUTSIDE RECORDS SUMMARY | 2024-06-29 13:24 | XMS_ITS | CCD ---
Author Name Interface, [id number] Address [address] [place], [place] [address] [address] Organization [facility] Address [facility] [address] [address] Care Team Providers Care Coding Specialist Name Role Phone Isadora Richards Unavailable Unavailable Care Plan Reason for Visit Encounters Functional Status Immunizations Medications Problems Procedures Social History Vital Signs
--- OUTSIDE RECORDS SUMMARY | 2024-06-29 13:24 | XMS_ITS ---
Author Name Interface, [id number] lity Address [address] [facility] [address] [address] Organization [facility] Address [address] [facility] [address] [address] Care Team Providers Care Vehicle Return Associate Name Role Phone LoboRachael Unavailable Unavailable Allergies [...] Of : 1960 Today's Provider:?Rachael Diamond RN, BRIDGE MECHANIC, MA, AOCN Date of Service:?06/17/2023 Attending Physician:?Isadora Richards (Hematology/Oncology) Referring Provider: ? HEMATOLOGY/ MEDICAL ONCOLOGY FOLLOW UP VISIT Reason for Visit Ongoing clinical surveillance?? Identifying data: Patient is a 61-year-old female with a history of stage I??left breast cancer, currently on anastrozole Assessment 1.?? Stage I??left-sided breast cancer, ???ER/DC strongly positive, grade 1,??pT1c, N0 M0, H ER 2 negative ???Postmenopausal ?Previously seen at [facility], transferring care for insurance reasons ???Oncotype score [...] try Voltaren for breast pain. 6. 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 [place] grade??1 of 3 ??? Angiolymphatic invasion absent ??? ER +99% ??? DC positive??and 9% ??? HER2??equivocal 2+ ??? Negative [...] the axilla.?? Initially she was seen at [facility]??but then moved encouraged kidney as it was [...] She has ongoing vaginal dryness??and used Hylo FRUCTOSE LOADER for a few doses but unsure if [...] genetic testing negative Social History ,??lives in [place] with her , Jeanmarie. Habits:?does not smoke or drink alcohol No update Vital Signs Blood pressure: 146/90, Pulse: 86, Temperature: 99 F, Respirations: 16, O2 sat: 96%, Pain Scale: 5,Height: 72 in, Weight: 207.2 lb, BSA: 2.16, BMI: 28.1 kg/m2 Covid-19 vaccine (Rupture) (07/03/2021), Patient declined/rejected; Flu vaccine - Adult [...] (T1c, pN0, M0, G1, ER Status: Positive, DC Status: Positive, HER-2/tom Status: Negative) Date of [...]
--- OUTSIDE RECORDS SUMMARY | 2024-06-29 13:24 | XMS_ITS | Encounter Summary ---
Author Organization [facility] Address [facility] [place] [address] Care Team Providers Care Clinical Project Assistant Name Role Phone Clinic, 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
--- OUTSIDE RECORDS SUMMARY | 2024-06-29 13:24 | XMS_ITS | Clinical Summary ---
Author Organization [facility] Address [address] [place] [address] Care Team Providers Care Asset Specialist Name Role Phone Chelsey Rodriguez MD Primary Care Provider + Benjy Silva MD Unavailable [phone] Allergies Active Allergy Reactions Criticality Noted Date [...] Concern for axonal issue. Sees Dr. Mcgarry [facility] health care 01/14/2013 Overview (01/14/2013): Colonoscopy 01/2013 [...] Department Care Team Description 06/22/2024 Orders Only [facility] [address] [facility] [address] [place] [address] Benjy Silva MD <No scans attached> 06/09/2024 Orders Only [facility] Scanner 1 scan: (1-Ord) [facility], CYSTOSCOPY, 06/09/2024 06/04/2024 Telephone [facility] [address] [place] [address] Jaye Figueroa PA Questions 05/24/2024 1:00 PM CDT Office [place] [facility] [address] [place] [address] Zena Cardozo, ABBEY Anxiety; Depression 05/24/2024 Travel 04/29/2024 11:00 AM CDT Office Visit [facility] [address] [place] [address] Chelsey Rodriguez MD Medication Management; hair loss; Derm Problem (Spot on left shoulder) 04/29/2024 Travel 04/28/2024 Orders Only [facility] Scanner 1 scan: (1-Ord) [...] on file Legal Sex Female 7:54 AM PROTEOMICS SCIENTIST Gender Identity Not on file Sexual Orientation [...] 37.7 C (99.8 F) 01/31/2024 1:24 PM PROTEOMICS SCIENTIST Respiratory Rate 15 02/25/2024 10:5 3 AM PROTEOMICS SCIENTIST Oxygen Saturation 96% 01/31/2024 1:2 4 PM PROTEOMICS SCIENTIST Inhaled Oxygen Concentration - - Weight 90.3 kg (199 lb 1.6 oz) 04/30/19 11:02 AM CDT with shoes Height 181.9 cm (5' 11.6) 02/25/2024 1 0:53 AM PROTEOMICS SCIENTIST Body Mass Index 27.31 02/25/2024 10:53 AM PROTEOMICS SCIENTIST Plan of Treatment Upcoming Encounters Date Type Department Care Team (Late st Contact Info) Description 07/07/2024 10:15 AM CDT Office Visit [facility] [address] [facility] [address] [place] [address] Yaneth Schilling MD [address] [place] [address] 07/20/2024 9:30 AM CDT Office Visit [facility] [address] [facility] [address] [place], [place] [id number] [place] [address] [place] [address] Health Maintenance Due Date Last Done Comments COVID-19 vaccine series (#1) 11/25/1967 HIV for age 15-65 1977 Hepatitis C screening for age 18-79 1980 Pneumococcal series for age 50+ (1 of 2 - PCV) 1981 RSV vaccine for adults or (1 - Risk 60-74 years 1-dose series) 2022 Mammogram for age 45-75 01/18/2025 01/19/20 24, 01/16/2023, 03/25/2022, Additional history exists BMI (ht and wt on same day) for age 18+ 02/24/2025 02/25/2024, 01/20/2024, 12/24/2023, Additional history exists Depression screening for age 12+ 04/29/2025 04/29/2024 Lipids for age 45-75 01/21/2028 01/20/2023, 12/26/2021, 10/11/2019, Additional history exists Pap test for age 21-65 01/21/2028 , 01/20/2023, 10/11/2019, Additional history exists Tetanus booster 03/18/2032 03/18/2022, 1202/2011, 05/14/2007, Additional history exists Colonoscopy through age 75 01/14/2033 01/14/2023, Zoster (shingles) series for age 50+ Completed 04/11/2021, 01/26/2021 Tdap Completed 03/18/2022, 01/11, 05/14/2007 Influenza Vaccine Completed 12/23/2023, , 12/26/2021, Additional history exists Hepatitis B series for 19+ Aged Out N o longer eligible based on patient's age to complete this topic Medical Devices Implanted Type Area Product Safety Associate Device Identifier Shelf Expiration Date Model / Serial / Lot Iol Audrain +19 Tecnis [id number] - [id number] Implanted:Qty : 1 on 03/21/2022 by Darwin Lockwood MD at [facility] Implants Right: Eye [employer] 07/27/2026 [id number] 19.00 / [id number] / NA Procedures Procedure Name Priority Date/Time Associated Diagnosis Comments SCAN-OPERATIVE/PRO CEDURE REPORT 06/09/2024 12:00 AM CDT SCAN-OPERATIVE/PRO CEDURE REPORT 04/28/2024 12:00 AM CDT XR MAMMO FELIX BILAT SCREEN Routine 01/19/2024 11:51 AM PROTEOMICS SCIENTIST Breast cancer in female (HC) Screening mammogram for breast cancer LIPID PANEL W REFLEX MEASURED LDL Routine 01/20/2023 1:25 PM PROTEOMICS SCIENTIST Hyperlipidemia, unspecified hyperlipidemia type HPV HIGH RISK Routine 01/20/2023 1:05 PM PROTEOMICS SCIENTIST Cervical cancer screening SCAN-COLONOSCOPY 01/14/2023 1:30 PM PROTEOMICS SCIENTIST from Last 3 Months or Most Recently Relevant to Health Maintenance Results * SCAN-OPERATIVE/PROCEDURE REPORT (06/09/2024 12:00 AM CDT) us Scanner OTHER Final Result * SCAN-OPERATIVE/PROCEDURE REPORT (04/28/2024 12:00 AM CDT) us Scanner OTHER Final Result * XR MAMMO FELIX BILAT SCREEN (01/19/2024 11:51 AM PROTEOMICS SCIENTIST) Anatomical Region Laterality Modality BREASTS, Breast Left, Breast Right Bilateral Mammography Impressions 01/19/2024 12:19 PM PROTEOMICS SCIENTIST There is no radiographic evidence for malignancy. Recommend annual mammograms. MAMMOGRAM ASSESSMENT: ACR 2 Benign PATIENTS: You will also receive a letter with your examination results in an easy to read format. If you have questions about your results, please contact your referring provider. Narrative 01/19/2024 12:19 PM PROTEOMICS SCIENTIST For Patients: As a result of the Century Cures Act, medical imaging exams and procedure reports are released immediately into your electronic medical record. You may view this report before your referring provider. If you have questions, please contact your health care provider. XR MAMMO FELIX BILAT SCREEN [[id number]] CLINICAL HISTORY: This is an asymptomatic 63 y.o. patient. INDICATION FOR EXAM: Mammogram Screening. TECHNIQUE: CC & MLO views were obtained. This study was evaluated with the assistance of Computer-Aided Detection. Breast Tomosynthesis was used in interpretation. COMPARISON FILMS: Yes 01/16/23 [facility] 03/25/22 [facility] FINDINGS: The breasts are heterogeneously dense, which may obscure small masses. No suspicious masses or microcalcifications. There are post treatment changes of left breast. Rachael Diamond DEER FARM WORKER MAMMO Final Resu lt * (ABNORMAL) LIPID PANEL W REFLEX MEASURED LDL (01/20/2023 1:25 PM PROTEOMICS SCIENTIST) CHOLESTEROL,TOTAL 214(H) 100 - 199 mg/dL 01/20/2023 11:14 PM PROTEOMICS SCIENTIST [facility] Comment: Cholesterol, Total Reference Ranges Desirable <200 mg/dL Borderline 200-239 mg/dL High >=240 mg/dL TRIGLYCERIDES 221(H) <150 mg/dL 01/20/2023 11:14 PM PROTEOMICS SCIENTIST [facility] [facility] HDL CHOLESTEROL 41 >40 mg/dL 11:14 PM PROTEOMICS SCIENTIST [facility] NON-HDL CHOLESTEROL 173(H) <145 mg/dl 01/20/2023 11:14 PM PROTEOMICS SCIENTIST [facility] CHOL/HDL RATIO 5.22(H) <4.50 01/20/2023 11:14 PM PROTEOMICS SCIENTIST [facility] LDL CHOLESTEROL 129 <=130 mg/dL 01/20/2023 11:14 PM PROTEOMICS SCIENTIST [facility] VLDL CHOLESTEROL 44(H) <=30 mg/dL 01/20/2023 11:14 PM PROTEOMICS SCIENTIST [facility] PROVIDER ORDERED STATUS RANDOM 01/20/2023 11:14 PM PROTEOMICS SCIENTIST [facility] Blood BLOOD SPECIMEN / Unknown Venipuncture / Unknown 01/20/2023 1:25 PM PROTEOMICS SCIENTIST 01/20/2023 1:25 PM PROTEOMICS SCIENTIST Chelsey Rodriguez MD CHEMISTRY Final Re sult Performing Organization Address City/State/[facility] Co de Phone Number [facility] [address] [place] [id number], * HPV HIGH RISK (01/20/2023 1:05 PM PROTEOMICS SCIENTIST) TYPE 16 Negative Negative 01/22/2023 4:04 PM PROTEOMICS SCIENTIST [facility] TYPE 18 Negative Negative 01/22/2023 4:04 PM PROTEOMICS SCIENTIST [facility] OTHER HIGH RISK TYPES Negative Negative 01/22/2023 4:04 PM PROTEOMICS SCIENTIST [facility] Other (Cervical) Non-Blood / Unknown 01/20/2023 1:05 PM PROTEOMICS SCIENTIST 01/21/2023 9:05 AM PROTEOMICS SCIENTIST Narrative [facility] - 01/22/2023 4:04 PM PROTEOMICS SCIENTIST HPV types 16, 18, 31, 33, 35, 39, 45, 51, 52, 56, 58, 59, 66 and 68 DNA were undetectable or below the pre-set threshold. Methodology: Fatou Derick 4800 HPV Test Chelsey Rodriguez MD MICROBIOLOGY Final Re sult [facility] [address] [place] [address], [place] * SCAN-COLONOSCOPY (01/14/2023 1:30 PM PROTEOMICS SCIENTIST) Narrative Procedure Note Inge Crabtree MD - 01/14/2023 12:27 PM CST [facility] [address], [address], [place] [id number] Patient Name: Sonja Mobley Gender: Female Exam Date: 01/14/2023 Visit Number: [id number] Age: 62 Years Date of : 1960 Attending MD: Inge Crabtree MD Medical Record#: [id number] Procedure: Colonoscopy Indications: Colorectal cancer screening Referring MD: Referral Self Primary MD: Chelsey Rodriguez MD Medications: Admitting Medications: 0.9% Normal Saline at TK Intra Procedure Medications: Patient received monitored anesthesia [...] signed by: Magdalena Desai DO Interpreted at [facility] Digestive [facility], [address] [place], [place] [id number] Orders Instruction(s)/Education: Instruction/Education Timeframe Assessment Colon Cancer Prevention Z12.11 Final Plan: Repeat colonoscopy in 10 years for screening. If you have signs orsymptoms of lower GI illness or a new diagnosis of colon cancer in animmediate family member, you should contact [facility] or your primary providerto discuss whether [...] Health Maintenance Insurance [employer] AP[employer]AUSE [place]ES [id number] Advance Directives * Full Code (Latest Code Status on File) Date Activated Date Inactivated Comments 02/27/2021 7:11 AM 02/27/2021 4:18 PM Question Answer Comments Code Status Discussion: Unable to Assess Preferences, Provider to review later Care Teams Asset Specialist Relationship Specialty Start Date End Date Chelsey Rodriguez MD PCP - General 07/03/09 [place] [address] [place] [address] Rheumatology 02/17/24
--- OUTSIDE RECORDS SUMMARY | 2024-06-29 13:24 | XMS_ITS | CCD ---
Author Name Interface, [id number] lity Address [address] [facility] [address] [address] Organization [facility] Address [address] [facility] [address] [place] [address] Care Team Providers Care Education Adviser Name Role Phone Isadora Rihcards Unavailable Unavailable Care Plan Date Type Value [...] Name Instructions Status 07/26/2024 Physician Order RTC SENIOR PAYROLL SPECIALIST/RISHI Cano Ordered 01/25/2025 Physician Order RTC MD [...]
--- OUTSIDE RECORDS SUMMARY | 2024-06-29 13:24 | XMS_ITS ---
Author Name Interface, [id number] lity Address [address] [facility] [address] [address] Organization [facility] Address [address] [facility] [address] [address] Care Team Providers Care Deputy District Customs Director Name Role Phone LoboRachael Unavailable Unavailable Allergies [...] : 1960 Today's Provider:?Rachael Diamond RN, BRIDGE CONSTRUCTION INSPECTOR, MA, AOCN Date of Service:?06/17/2023 Attending Physician:?Isadora Richards (Hematology/Oncology) Referring Provider: ? HEMATOLOGY/ MEDICAL ONCOLOGY FOLLOW UP VISIT Reason for Visit Ongoing clinical surveillance?? Identifying data: Patient is a 61-year-old female with a history of stage I??left breast cancer, currently on anastrozole Assessment 1.?? Stage I??left-sided breast cancer, ???ER/[place] strongly positive, grade 1,??pT1c, N0 M0, H ER 2 negative ???Postmenopausal ?Previously seen at [facility], transferring care for insurance reasons ???Oncotype [...] try Voltaren for breast pain. 6. 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 [place] grade??1 of 3 ??? Angiolymphatic invasion absent ??? ER +99% ??? [place] positive??and 9% ??? HER2??equivocal 2+ ??? Negative [...] the axilla.?? Initially she was seen at [facility]??but then moved encouraged kidney as [...] She has ongoing vaginal dryness??and used Hylo ZINC PLATING MACHINE OPERATOR for a few doses but [...] genetic testing negative Social History ,??lives in [place] with her , Jeanmarie. Habits:?does not smoke or drink alcohol No update Vital Signs Blood pressure: 146/90, Pulse: 86, Temperature: 99 F, Respirations: 16, O2 sat: 96%, Pain Scale: 5,Height: 72 in, Weight: 207.2 lb, BSA: 2.16, BMI: 28.1 kg/m2 Covid-19 vaccine (P2P-Next) (07/03/2021), Patient declined/rejected; Flu vaccine - Adult [...] (T1c, pN0, M0, G1, ER Status: Positive, MO Status: Positive, HER-2/tom Status: Negative) Date of [...]
--- OUTSIDE RECORDS SUMMARY | 2024-06-29 13:24 | XMS_ITS | Clinical Summary ---
Author Organization [place] Address [address] [facility] [place] [address] Care Team Providers Care Talking Books Library Clerk Name Role Phone Clinic, [facility] Primary Care Provider + Chelsey Rodriguez MD Unavailable [phone] Allergies Active Allergy Reactions Criticality Noted Date [...] migh t be different from the original. [email or web address] Problem Noted Date Diagnosed Date Stress incontinence [...] on file Legal Sex Female 3:18 AM MACHINE CHOCOLATE MOLDER Gender Identity Not on file Sexual Orientation Not on file Last Filed Vital Signs Vital Sign Reading Time Taken Comments Blood Pressure 116/68 12/31/2016 10:54 AM MACHINE CHOCOLATE MOLDER Pulse 82 01/31/2014 3:29 PM MACHINE CHOCOLATE MOLDER Temperature 36.1 C (97 F) 02/02/2016 11:09 AM MACHINE CHOCOLATE MOLDER Respiratory Rate 15 02/02/2016 12:15 PM MACHINE CHOCOLATE MOLDER Oxygen Saturation 99% 02/02/2016 12:00 PM MACHINE CHOCOLATE MOLDER Inhaled Oxygen Concentration - - Weight 92.1 kg (203 lb) 12/31/2016 10:54 AM MACHINE CHOCOLATE MOLDER Height 182.9 cm (6') 12/31/2016 10:54 AM MACHINE CHOCOLATE MOLDER Body Mass Index 27.53 12/31/2016 10:54 AM MACHINE CHOCOLATE MOLDER Plan of Treatment Not on file Medical Devices Implanted Type Area Clinical Abstractor Device Identifier Shelf Expiration Date Model / Serial / Lot Imp Macroplastique Bulking Agent Inj Syr 2.5ml Mpq-2.5 Implanted:Qty: 1 on 02/02/2016 by Raz Buckner MD at [facility] Other N/A: Bladder COGENTIX 01/07/2017 MPQ-2.5 / / [id number] Care Teams Talking Books Library Clerk Relationship Specialty Start Date End Date [facility], [facility] [id number] [place] [phone] PCP - General 11/15/10 Chelsey Rodriguez MD [address] [address] 11/15/10
[2024-06-29 13:25] LABS: Ethanol* < 0.01 % (0.01-0.03)
[2024-06-29 13:27] LABS: Creatinine, Point-of-Care* 0.9 mg/dl (0.6-1.3)
[2024-06-29 13:43] LABS: Slide Review Reflex No
[2024-06-29 14:52] LABS: Appearance Urine Clear (Clear); Bilirubin Urine Negative (Negative); Blood Urine Negative (Negative); Color Urine Yellow (Yellow); Glucose Urine Negative (Negative); Ketones Urine Negative (Negative); Leukocyte Esterase Urine Negative (Negative); Nitrite Urine Negative (Negative); Protein Urine Negative (Negative); Specific Gravity Urine 1.015 (1.000-1.030); Urobilinogen Urine 0.2 (0.2-1.0); pH Urine 8.5 (5.0-8.5)
[2024-06-29 15:06] LABS: Amorphous Sediment Urine Moderate; Bacteria Urine Moderate; RBC Urine 0-2 (0-2); Squamous Epithelial Cell Urine Few (None-Few); WBC Urine 0-2 (0-5)
[2024-06-29] MEDS: ONDANSETRON 2 MG/ML inj 4 MG IVP (15:06)
[2024-06-29] MEDS: KETOROLAC 15 MG/ML inj IVP (15:06)
--- NOTE | 2024-06-29 15:37 | CRLHL7_ITS ---
For Patients: As a result of the Century Cures Act, medical imaging exams and procedure reports are released immediately into your electronic medical record. You may view this report before your referring provider. If you have questions, please contact your health care provider. INDICATION: Vertigo, falls. TECHNIQUE: Multisequence multiplanar MRI of the brain without the use of intravenous contrast. COMPARISON: Correlated with CT head dated same day 06/29/2024. FINDINGS: Susceptibility artifact emanating from dental hardware limits evaluation. Subject to limitation: No evidence of acute ischemia. Normal signal intensity of the brain parenchyma. The ventricles are normal in size. Flow voids of the larger intracranial arteries are preserved. Normal calvarial bone marrow signal intensity. Thinning of the right lens suggestive of prior cataract surgery. Mild mucosal thickening within ethmoid sinuses. IMPRESSION: Subject to limitations imposed by susceptibility artifact emanating from dental hardware, unremarkable noncontrast MRI of the brain. Dictated by Clinton Tyler MD @ 06/29/2024 4:49:01 PM (Electronically Signed)
[2024-06-29 16:31] LABS: PCR FLU A Negative PCR FLU A (Negative); PCR FLU B Negative PCR FLU B (Negative); PCR RSV Negative PCR RSV (Negative); SARS PCR* Negative SARS-CoV-2 (Negative)
--- NOTE | 2024-07-08 12:30 | ED.GENADULT ---
HPI - General Adult General Date Seen: 06/29/24 Chief complaint: Weakness Stated complaint: Fall last night, hallucination headaches, nausea Time Seen by Provider: 06/29/24 12:35 History of Present Illness HPI narrative: This is an addendum to my patient ER note from her ER visit on 06/29/2024 Physical exam Primary Survey: A- patent. Speaking clearly. Phonation normal. No stridor. B- breathing easily. Lung sounds clear and equal. Oxygen saturation normal on room air C- no active bleeding. Blood pressure stable. Symmetric pulses and cap refill in 4 extremities. D- alert and oriented x3, but she seems confused and a bit 10 gentle with her history. As a result of her confusion, nurses call the trauma team activation at the time of triage GCS 15. No focal deficits. Constitutional: Appears well-developed and well-nourished. Alert. Conversant and speech is fluent but she is confusing, non chronological with her history. Non toxic. HENT: Head: Atraumatic. Nose: Nose normal. Mouth/Throat: Oral mucosa is clear and moist. no trismus. Pharynx normal. Tonsils symmetric. No tonsillar enlargement, erythema, or exudate. Eyes: Conjunctivae normal. EOM normal. Pupils equal, round, and reactive to light. No scleral icterus. Neck: Normal range of motion. Neck supple. No tracheal deviation present. Cardiovascular: Normal rate, regular rhythm. No gallop. No friction rub. No murmur heard. Symmetric radial artery pulses Pulmonary/Chest: Effort normal. No stridor. No respiratory distress. No wheezes. No rales. No rhonchi . No tenderness. Abdominal: Soft. Bowel sounds normal. No distension. No mass. No tenderness. No rebound. No guarding. Musculoskeletal: RUE: Normal range of motion. No tenderness. No deformity LUE: Normal range of motion. No tenderness. No deformity No C, T, L-spine step-off Pelvis is stable but she endorses pain on both sides of her bony pelvis and both of her thighs and lower legs. RLE: Normal range of motion. No edema. No deformity LLE: Normal range of motion. No edema. No deformity Complains of pain in both legs/thighs but no specific point tenderness. No bruising Lymph: No cervical adenopathy. Neurological: Alert and oriented to person, place, and time. Normal strength. CN II-VII intact. No sensory deficit. GCS eye subscore is 4. GCS verbal subscore is 5. GCS motor subscore is 6. Normal coordination . Feels dizzy and unsteady when standing up. Skin: Skin is warm and dry. No rash noted. No pallor. Normal capillary refill. Psychiatric: Limited. The time seems anxious, somewhat confused. Not obviously slurring her speech or intoxicated with alcohol. No signs of alcohol withdrawal. Told the triage nurse that she was having hallucinations but it sounds like she is not really seeing or hearing things but rather she is having strange thoughts. had the thought that she had ?3 bodies that needed to go to the doctor. ? She says that she was having hallucinations but this does not really sound like a true visual or auditory hallucination, rather an episode of confusion or maybe a delusion. is attentively at her side. Related Data Home Medications ?Medication ?Instructions ?Recorded ?Confirmed anastrozole 1 mg tablet 1 mg PO DAILY 06/29/24 06/29/24 bupropion HCl 150 mg 24 hr tablet, 150 mg PO QAM 06/29/24 06/29/24 extended release gabapentin 400 mg capsule 1,600 mg PO QPM 06/29/24 06/29/24 spironolactone 50 mg tablet 50 mg PO DAILY 06/29/24 06/29/24 Previous Rx's ?Medication ?Instructions ?Recorded meclizine 25 mg tablet 25 mg PO QID #20 tabs 06/29/24 ondansetron 4 mg disintegrating 4 mg PO Q6H #20 tabs 06/29/24 tablet Allergies Allergy/AdvReac Type Severity Reaction Status Date / Time Penicillins Allergy Severe Difficulty Verified 06/29/24 13:28 Breathing [facility] Social History Smoking Status: Unknown if ever smoked Course Vital Signs Vital signs: Initial Vital Signs Temperature 98.9 F 06/29/24 12:23 Temperature Source Temporal Artery Scan 06/29/24 12:23 Pulse Rate 93 06/29/24 12:23 Pulse Rhythm Regular 06/29/24 12:23 Respiratory Rate 16 06/29/24 12:23 Blood Pressure 97/59 L 06/29/24 12:23 Blood Pressure Mean 71 06/29/24 12:23 Blood Pressure Position Sitting 06/29/24 12:23 Pulse Oximetry 98 06/29/24 12:23 Oxygen Delivery Method Room Air 06/29/24 12:23 Vital Signs Temperature 98.9 F 06/29/24 12:23 Pulse Rate 93 06/29/24 12:23 Respiratory Rate 16 06/29/24 12:23 Blood Pressure 97/59 L 06/29/24 12:23 Pulse Oximetry 98 06/29/24 12:23 Oxygen Delivery Method Room Air 06/29/24 12:23 Temperature 98.9 F 06/29/24 12:23 Pulse Rate 84 06/29/24 17:13 Respiratory Rate 18 06/29/24 17:13 Blood Pressure 117/68 06/29/24 17:13 Pulse Oximetry 97 06/29/24 17:13 Oxygen Delivery Method Room Air 06/29/24 17:13 Medications Administered Medications: Discontinued Medications Generic Name Dose Route Start Last Admin Trade Name Freq PRN Reason Stop Dose Admin Sodium Chloride 1,000 mls @ 1,000 mls/hr 06/29/24 12:45 06/29/24 14:39 0.9 % Sodium Chloride 1000 Ml IV 06/29/24 13:44 Infused .Q1H [facility] Infusion Sodium Chloride 1,000 mls @ 1,000 mls/hr 06/29/24 15:00 06/29/24 15:51 0.9 % Sodium Chloride 1000 Ml IV 06/29/24 15:59 Infused .Q1H [facility] Infusion Ketorolac Tromethamine 15 mg 06/29/24 15:00 06/29/24 15:06 Ketorolac 15 Mg/Ml Inj IVP 06/29/24 15:01 15 mg ONCE ONE Administration Ondansetron HCl 4 mg 06/29/24 15:00 06/29/24 15:06 Ondansetron 2 Mg/Ml Inj IVP 06/29/24 15:01 4 mg ONCE ONE Administration Medical Decision Making Lab Data Labs: Lab Results 06/29/24 06/29/24 06/29/24 Range/Units 12:45 12:47 12:48 WBC 6.45 (4.50-11.00) K/uL RBC 4.01 (4.00-5.20) m/uL Hgb 11.9 L (12.0-16.0) gm/dL Hct 35.8 (33.0-51.0) % MCV 89 (80-100) fL MCH 30 (26-34) pg MCHC 33 (32-36) gm/dL RDW Coeff of Antonia 14.4 (11.5-15.5) % Plt Count 177 (140-440) K/uL Neut % (Auto) 85.8 H (42.0-72.0) % Lymph % (Auto) 9.0 L (20-44) % [place] % (Auto) 5.0 (0.0-11.0) % Eos % (Auto) 0.0 (0.0-7.0) % Baso % (Auto) 0.2 (0.0-3.0) % Neut # (Auto) 5.50 (1.7-7.0) K/uL Lymph # (Auto) 0.60 L (0.90-2.90) K/uL [place] # (Auto) 0.30 (0.00-0.90) K/UL Eos # (Auto) 0.00 (0.00-0.50) K/uL Baso # (Auto) 0.01 (0.00-0.30) K/uL Abs Immat Gran (auto) 0.00 (0.00-0.30) K/uL Imm/Tot Granulo (auto) 0.0 % VBG pH 7.406 (7.32-7.43) VBG pCO2 41 (40-50) mmHG VBG pO2 33.6 (25-47) mmHG VBG HCO3 26 (21-28) mmol/L Sodium 133 L (135-149) mmol/L Potassium 4.1 (3.6-5.1) mmol/L Chloride 101 (96-114) mmol/L Carbon Dioxide 25 (20-32) mmol/L Anion Gap 7 (7-15) mEq/L BUN 11 (7-30) mg/dL Creatinine 0.8 (0.5-1.5) mg/dL Estimated Creat Clear 68.18 Estimated GFR 84 ml/min Glucose 110 (60-115) mg/dL Lactate 1.3 (0.5-1.9) mmol/L Calcium 9.0 (8.4-10.6) mg/dL Magnesium 2.2 (1.5-2.6) mg/dL Total Bilirubin 0.9 (0.1-1.5) mg/dL AST 29 (12-35) U/L ALT 26 (4-35) U/L Alkaline Phosphatase 76 (40-150) U/L Total Protein 8.2 (6.0-8.3) g/dL Albumin 4.4 (3.3-5.0) g/dL Urine Color (Yellow) Urine Appearance (Clear) Urine pH (5.0-8.5) Ur Specific [place] (1.000-1.030) Urine Protein (Negative) Urine Glucose (UA) (Negative) Urine Ketones (Negative) Urine Blood (Negative) Urine Nitrite (Negative) Urine Bilirubin (Negative) Urine Urobilinogen (0.2-1.0) Ur Leukocyte Esterase (Negative) Urine RBC (0-2) Urine WBC (0-5) Ur Squamous Epith Cells (None-Few) Amorphous Sediment (None) Urine Bacteria (None) Ethyl Alcohol < 0.01 (0.01-0.03) % SARS-CoV-2 (PCR) (Negative) Influenza Type A (PCR) (Negative) Influenza Type B (PCR) (Negative) RSV (PCR) (Negative) POC Creatinine 0.9 (0.6-1.3) mg/dl POC Troponin I 0.00 L (0.01-0.04) ng/ml 06/29/24 06/29/24 Range/Units 14:28 15:45 WBC (4.50-11.00) K/uL RBC (4.00-5.20) m/uL Hgb (12.0-16.0) gm/dL Hct (33.0-51.0) % MCV (80-100) fL MCH (26-34) pg MCHC (32-36) gm/dL RDW Coeff of Antonia (11.5-15.5) % Plt Count (140-440) K/uL Neut % (Auto) (42.0-72.0) % Lymph % (Auto) (20-44) % [place] % (Auto) (0.0-11.0) % Eos % (Auto) (0.0-7.0) % Baso % (Auto) (0.0-3.0) % Neut # (Auto) (1.7-7.0) K/uL Lymph # (Auto) (0.90-2.90) K/uL [place] # (Auto) (0.00-0.90) K/UL Eos # (Auto) (0.00-0.50) K/uL Baso # (Auto) (0.00-0.30) K/uL Abs Immat Gran (auto) (0.00-0.30) K/uL Imm/Tot Granulo (auto) % VBG pH (7.32-7.43) VBG pCO2 (40-50) mmHG VBG pO2 (25-47) mmHG VBG HCO3 (21-28) mmol/L Sodium (135-149) mmol/L Potassium (3.6-5.1) mmol/L Chloride (96-114) mmol/L Carbon Dioxide (20-32) mmol/L Anion Gap (7-15) mEq/L BUN (7-30) mg/dL Creatinine (0.5-1.5) mg/dL Estimated Creat Clear Estimated GFR ml/min Glucose (60-115) mg/dL Lactate (0.5-1.9) mmol/L Calcium (8.4-10.6) mg/dL Magnesium (1.5-2.6) mg/dL Total Bilirubin (0.1-1.5) mg/dL AST (12-35) U/L ALT (4-35) U/L Alkaline Phosphatase (40-150) U/L Total Protein (6.0-8.3) g/dL Albumin (3.3-5.0) g/dL Urine Color Yellow (Yellow) Urine Appearance Clear (Clear) Urine pH 8.5 (5.0-8.5) Ur Specific [place] 1.015 (1.000-1.030) Urine Protein Negative (Negative) Urine Glucose (UA) Negative (Negative) Urine Ketones Negative (Negative) Urine Blood Negative (Negative) Urine Nitrite Negative (Negative) Urine Bilirubin Negative (Negative) Urine Urobilinogen 0.2 (0.2-1.0) Ur Leukocyte Esterase Negative (Negative) Urine RBC 0-2 (0-2) Urine WBC 0-2 (0-5) Ur Squamous Epith Cells Few (None-Few) Amorphous Sediment Moderate A (None) Urine Bacteria Moderate A (None) Ethyl Alcohol (0.01-0.03) % SARS-CoV-2 (PCR) Negative SARS-CoV-2 (Negative) Influenza Type A (PCR) Negative PCR FLU A (Negative) Influenza Type B (PCR) Negative PCR FLU B (Negative) RSV (PCR) Negative PCR RSV (Negative) POC Creatinine (0.6-1.3) mg/dl POC Troponin I (0.01-0.04) ng/ml Discharge Plan Discharge Clinical Impression: Dizziness Closed head injury Qualifiers: Encounter type: initial encounter Qualified Code(s): S09.90XA - Unspecified injury of head, initial encounter Patient Disposition: Home, Self-Care Condition: Stable Instructions: Dizziness (ED) Additional Instructions: I recommend close follow-up with the primary care provider for the dizziness. Take the meclizine as directed for dizziness. His Zofran as needed for nausea. Prescriptions: New meclizine 25 mg tablet 25 mg PO QID Qty: 20 0RF ondansetron 4 mg tablet,disintegrating 4 mg PO Q6H Qty: 20 0RF No Action anastrozole 1 mg tablet 1 mg PO DAILY gabapentin 400 mg capsule 1,600 mg PO QPM bupropion HCl 150 mg tablet extended release 24 hr 150 mg PO QAM spironolactone 50 mg tablet 50 mg PO DAILY Follow Up/Referrals: Provider,Not a Local [Primary Care Provider, Family Practice] Stand Alone Forms: [employer] Info Instructions
== END 2024-06-29 17:58 | disposition home or self-care (01) ==
PROVIDERS: Emergency Provider Emergency Medicine
DX: S09.90XA Unspecified injury of head, initial encounter (principal); R42 Dizziness and giddiness; M35.00 Sjogren syndrome, unspecified; M79.605 Pain in left leg; M79.604 Pain in right leg; M54.16 Radiculopathy, lumbar region; W18.30XA Fall on same level, unspecified, initial encounter
CPT/HCPCS: 36415; 70450; 70551; 71260; 72125; 74177; 80053; 81001; 82077; 82565; 82803; 83605; 83735; 84484; 85025; 87040; 87086; 87631; 93005; 96361; 96374; 96375; 99284; 99285; 99291; J1885; J2405; J7030; Q9967